=== PATIENT | male | born 1950 | race African-American/Black ===

== ENCOUNTER 2017-04-11 12:08 | Emergency (ER) | payer OTHER ==
[~2017-04-11] VITALS: Ht 175.3 cm; Wt 93.0 kg
[~2017-04-11 12:08] MED LIST: AMLO5 PO; LIPI10TA PO; PRIL10CA PO; PROT40TA PO; TAMS5CAP PO
[2017-04-11 12:13] VITALS: BP 127/72; PULSE 62; RESP 24; TEMP 98; O2SAT 98
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
[2017-04-11] MEDS ORDERED: CYCL1TAB29 PO (14:01)
[2017-04-11] MEDS ORDERED: NAPR500T PO (14:01)
== END 2017-04-11 14:16 | disposition home or self-care (01) ==
LOC: NEPK 12:08
DX: S16.1XXA Strain of muscle, fascia and tendon at neck level, initial encounter (principal); R42 Dizziness and giddiness; M19.90 Unspecified osteoarthritis, unspecified site; E78.00 Pure hypercholesterolemia, unspecified; K21.9 Gastro-esophageal reflux disease without esophagitis; J44.9 Chronic obstructive pulmonary disease, unspecified; V47.6XXA Car passenger injured in collision with fixed or stationary object in traffic accident, initial encounter; Z79.899 Other long term (current) drug therapy
CPT/HCPCS: 70450; 72125

== ENCOUNTER 2018-07-01 08:17 | Inpatient (IN) ==
[2018-07-01] MEDS ORDERED: Gelatin Size 100 Topical Foam TOPICAL ONE (08:18)
[2018-07-01] MEDS ORDERED: Gelatin 12 MM/7 MM Topical Foam OTHER ONE (08:18)
[2018-07-01] MEDS ORDERED: Sodium Chloride 0.9% 2 ML Flush PRN IV.FLUSH (08:44)
[2018-07-01] MEDS ORDERED: fentaNYL Citrate Inj 250 MCG/5 ML Ampul ONE (11:14)
[2018-07-01] MEDS ORDERED: Thrombin Topical Soln 5,000 UNIT Vial TOPICAL ONE (11:30)
--- NOTE | 2018-07-01 11:46 | P.RAD ---
Post Procedure Progress Note - Pre Procedure Diagnosis (1) Left kidney mass - Post Procedure Diagnosis (1) Left kidney mass - Procedure Information Procedure Date: 07/01/18 Supervising Radiologist: Rohith Soto MD Estimated blood loss (mL): 5 Anesthesia: Local, Conscious Sedation - Plan of Activity Patient to Unit: [facility] Patient Condition: Good Additional Comments: Pt. post left renal biopsy. 3 18Ga. core samples taken from the top, the middle and the bottom of the mass F/U ct shows a small amount of perinephric hemorrhage. Full dictated report to follow See PACS Report for procedural detail/treatment.
[2018-07-01] MEDS ORDERED: Acetaminophen 325 MG Tablet PO PRN (12:49)
[2018-07-01 13:18] LABS: Baso % (Auto) 0.6 % (0.0-2.0); Eos # (Auto) 0.2 th/mm3 (0.0-0.4); Eos % (Auto) 3.5 % (0.0-4.0); Hematocrit 36.7 % (39.0-51.0); Hemoglobin 11.8 gm/dL (13.0-17.0); Lymph # (Auto) 1.8 th/mm3 (1.0-4.8); Lymph % (Auto) 37.2 % (9.0-44.0); Mean Corpuscular Hemoglobin 29.3 pg (27.0-34.0); Mean Corpuscular Volume 91.4 fL (80.0-100.0); Mean Platelet Volume 9.2 fL (7.0-11.0); Mono # (Auto) 0.4 th/mm3 (0.0-0.9); Neut # (Auto) 2.5 th/mm3 (1.8-7.7); Neut % (Auto) 50.7 % (16.0-70.0); Platelet Count 148 th/mm3 (150-450); Red Blood Count 4.02 mil/mm3 (4.50-5.90); Red Cell Distribution Width 16.6 % (11.6-17.2)
--- NOTE | 2018-07-01 13:58 | CT ---
EXAM DATE: 07/01/2018 10:49 AM EDT AGE/SEX: 67 years / Male INDICATIONS: Left renal biopsy. CLINICAL DATA: This is the patient's initial encounter. Patient reports that signs and symptoms have been present for 1 day and indicates a pain score of 0/10. MEDICAL/SURGICAL HISTORY: Hypertension. Renal calculi. TB, left renal mass . hernia repair COMPARISON: [facility] – [place] ABDOMEN & PELVIS W CONTRAST, 09/29/2016. . SEDATION TIME (min): 30 BIOPSY SITE: Left renal MEDICATION(S): 2.5mg midazolam (Versed) IV 125mcg fentanyl (Sublimaze) IV DEVICE(S): 18 gauge Temno core biopsy needle Three core specimen(s) sent to the laboratory for pathologic evaluation. PROCEDURE: CT guided Left renal biopsy Prior to the procedure informed consent was obtained. Any appropriate prior imaging studies were rev iewed. Using automated exposure control and adjustment of the mA and/or kV according to patient size, radiat ion dose was kept as low as reasonably achievable to obtain optimal diagnostic quality images. DICOM format image data is available electronically for review and comparison. The site was prepped in a sterile fashion. Full sterile technique was used, including cap, mask, shane rile gloves and gown and a large sterile sheet. Hand hygiene and 2% chlorhexidine and/or betadine/al cohol prep was utilized per protocol for cutaneous antisepsis. The skin and subcutaneous tissues wer e infiltrated with local anesthetic solution. With CT guidance the lesion in the left kidney was selected. A 17-gauge cannula was advanced through the skin and down to the renal parenchyma above this. An 18-gauge core biopsy was performed. Immediat tri following the biopsy there was a moderate amount of hemorrhage which returned through the cannula . Approximately 1 cc of Gelfoam mixed with thrombin was advanced through the cannula. Another half cc was placed along the lateral margin of the renal cortex. Follow-up CT imaging was performed. There i s no evidence of significant hemorrhage from the kidney. 2 more cortical biopsies were performed dire cted more superiorly and inferiorly. Follow-up CT demonstrated a small amount of perinephric hemorrhage. The cannula was pulled back to th e renal cortex. Approximately 2 cc of Gelfoam was advanced through the cannula in place along the arya al cortex. The patient was allowed to remain on scanner for a proximally [address] was pe rformed. There is no significant change in size. The patient tolerated the procedure well and there were no complications. The patient was returned to the Radiology Outpatient Unit in stable condition. CONCLUSION: 1. Successful CT-guided biopsy of the lower pole the left kidney. 2. The patient was transferred back to the radiology outpatient unit in satisfactory condition. The patient will be monitored for approximately 6 hours. Electronically signed by: Rohith Soto MD 07/01/2018 1:57 PM EDT
--- NOTE | 2018-07-01 14:09 | P.RAD ---
Radiology Note Pt evaluated in [facility]. secondary to increasing back pain, nausea and hematuria. Hemoglobin is stable, Heart rate is stable at 84bpm. Collected urine has a significant amount of hemorrhage and the increasing back pain is worrisome for hemorrhage. Will proceed to angio to asses for pseudoaneurysm / active bleed
[2018-07-01] MEDS ORDERED: fentaNYL Citrate Inj 100 MCG/2 ML Ampul ONE (14:48)
[2018-07-01] MEDS ORDERED: ceFAZolin 2 GM Premix Inj 2 GM/100 ML BAG IV.SIG ONE (15:00)
--- NOTE | 2018-07-01 15:20 | P.CON ---
History of Present Illness Consult date: 07/01/18 Requesting Physician: Dennis Schumacher Reason for Consult: Medical management Primary Care Provider: UNKNOWN Chief Complaint: Status post Kidney Biopsy History of Present Illness: This is a pleasant 66 y/o Male who was brought in for scheduled renal biopsy performed today, He developed low back pain and Hematuria, for angiography to evaluate for Pseudocyst, he has OA, Hyperlipidemia, GERD Hiatal hernia, COPD/Emphysema, Tuberculosis in the past, He had an evaluation in ER on May 20/2018 found 1 cm cyst right kidney with associated renal stones, Seen by Urology specialist status post CT abdomen and Pelvis found 4.5 cm lesion on the left lower pole suspected renal cell carcinoma versus nephritis, followed by Urology specialist already due to BPH and Erectile Dysfunction, he has also Hypertension but non compliant with his medications, Review of Systems All other systems reviewed negative except as stated in HPI PMFSH - History History Provided By: Patient - Medical History Medical History: Medical History (Last Updated 05/20/18 @ 21:04 by Lesley Reich RN) High cholesterol History of emphysema Hx of gastroesophageal reflux (GERD) Meningitis spinal Tuberculosis - Surgical History Surgical History: Surgical History (Last Updated 05/20/18 @ 20:52 by Lesley Reich RN) History of hernia repair - Family History Family History: Family History (Last Updated 07/01/18 @ 16:08 by Tino Thurman MD) Mother Cancer Mother Diabetes Mother Hypertension - Tobacco History Second Hand Smoke Exposure: No Tobacco Use In Past 30 Days: No Smoking Status: Former smoker Tobacco Type: Cigarettes - Alcohol History How Often Do You Have a Drink Containing Alcohol: Monthly or less - Substance Use History Substance History: No History of Abuse - Travel History Recent Travel in the [place] Within the Last 8 Weeks: No Recent Travel Out of the Country Within the Last 8 Weeks: No Medications and Allergies Active Medications: Active Medications Acetaminophen (Tylenol) 650 mg PO Q4H PRN PRN Reason: for Pain Scale 1 to 5 Sodium Chloride (Ns Inj) 1,000 mls @ 30 mls/hr IV.CONT .Q24H WINTER Cefazolin/Sodium Chloride (Ancef 2 Gm Premix Inj) 2 gm in 100 mls @ 200 mls/hr IV.SIG NOW ONE Stop: 07/01/18 15:29 Last Admin: 07/01/18 14:58 Dose: 200 mls/hr Oxycodone/Acetaminophen (Percocet 5/325 Mg) 1 tab PO Q4H PRN PRN Reason: SEE LABEL COMMENTS Last Admin: 07/01/18 13:56 Dose: 1 tab Sodium Chloride (Ns Flush) 2 ml IV.FLUSH BID WINTER Sodium Chloride (Ns Flush) 2 ml IV.FLUSH PRN PRN PRN Reason: FLUSH AFTER USING IV ACCESS Allergies Allergy/AdvReac Type Severity Reaction Status Date / Time Iodinated Contrast- Oral and Allergy Burning Verified 05/20/18 20:55 IV Dye [Contrast] Physical Exam Vital signs: Vital Signs 07/01/18 08:42 07/01/18 12:00 07/01/18 12:15 Temperature 98.0 F 98 F Pulse Rate 59 L 70 77 Respiratory Rate 20 20 16 Blood Pressure 159/76 H 148/79 H 138/101 H Pulse Oximetry 92 L 92 L 93 L 07/01/18 12:45 07/01/18 13:15 07/01/18 13:45 Temperature Pulse Rate 66 60 80 Respiratory Rate 18 16 20 Blood Pressure 157/84 H 148/50 H 156/90 H Pulse Oximetry 95 95 Intake & Output 06/30/18 07/01/18 07/01/18 18:59 06:59 18:59 Output Total 250 / 250 Balance -250 / -250 Weight 95.254 kg Output: Urine 250 / 250 Other: Weight On Admission 95.254 kg Narrative: GENERAL: This is a well-nourished, well-developed patient, in no apparent distress. CARDIOVASCULAR: Regular rate and rhythm without murmurs, gallops, or rubs. RESPIRATORY: Clear to auscultation. Breath sounds equal bilaterally. No wheezes , rales, or rhonchi. GASTROINTESTINAL: Abdomen soft, non-tender, nondistended. Normal active bowel sounds, Garcia cath in place. MUSCULOSKELETAL: Extremities without clubbing, cyanosis, right inguinal area dressed and bleeding NEURO: Alert & Oriented x4 to person, place, time, situation. Moves all ext x4 Assessment and Plan - Plan 1. Left Kidney Mass suspected recommended for Left Kidney Percutaneous Biopsy FNA of the mass he has already known Left calyceal diverticulum. today is in status post Successful CT guided biopsy samples taken from top, The Middle and bottom of the mass, seen small amount of Perinephric Hemorrhage, then on evaluation in [facility] secondary to increasing back pain, Nausea and Hematuria Hemoglobin stable, recommended for Angiography thinking in pseudoaneurysm/ active bleeding then was performed Angiogram with embolization, probable Venous bleed. discussed with managed care specialist doctor Dennis Schumacher he wants the Medical team to follow the patient on Observation during the night and follow vital signs during the night and follow for Anemia, will continue H and H every six hours. follow Telemetry and Vital signs. 2. COPD/emphysema at this time asymptomatic but will continue scheduled Bronchodilator, Mucolytic and incentive spirometry. 3. OA by history 4. Hyperlipidemia by history will continue Home medicines once reconciled. 5. GERD on gastric protection 6. BPH/Erectile Dysfunction by history 7. Hypertension uncontrolled will give Hydralazine as needed for blood pressure. DVT prophylaxis contraindicated in the light of Hematuria. Code Status: Full code Discussed Condition With: Nurse, patient in post op difficult to obtain information from him As always a pleasure to talk about cases receive input and recommendations by Interventional managed care specialist Doctor Dennis Schumacher Appreciated. Discharge Planning: Once cleared by managed care specialist.
--- NOTE | 2018-07-01 15:46 | P.RAD ---
Post Procedure Progress Note - Pre Procedure Diagnosis (1) Status post biopsy of kidney (2) History of bleeding following renal biopsy (3) Left kidney mass - Post Procedure Diagnosis (1) History of bleeding following renal biopsy (2) Left kidney mass (3) Status post biopsy of kidney - Procedure Information Supervising Radiologist: Dennis Schumacher MD Estimated blood loss (mL): 3 Anesthesia: Local, Analgesia, Conscious Sedation - Plan of Activity Patient to Unit: [facility] Patient Condition: Good See PACS Report for procedural detail/treatment. Vascular - Arterial Procedure left Renal Procedure: Angiogram, Embolization (Lower pole branch of renal artery) - Additional Information Findings: Probable LP venous bleed. Feeding arteries embolized with microcoils and gelfoam
[2018-07-01] MEDS ORDERED: Labetalol HCl Inj 100 MG/20 ML Vial IV.PUSH ONE (16:05)
[2018-07-01 16:21] LABS: Baso # (Auto) 0.1 th/mm3 (0.0-0.2); Baso % (Auto) 0.3 % (0.0-2.0); Eos # (Auto) 0.1 th/mm3 (0.0-0.4); Eos % (Auto) 0.8 % (0.0-4.0); Hematocrit 32.8 % (39.0-51.0); Hemoglobin 10.8 gm/dL (13.0-17.0); Lymph # (Auto) 2.5 th/mm3 (1.0-4.8); Lymph % (Auto) 15.3 % (9.0-44.0); Mean Corpuscular Hemoglobin 29.9 pg (27.0-34.0); Mean Corpuscular Volume 90.5 fL (80.0-100.0); Mean Platelet Volume 9.5 fL (7.0-11.0); Mono # (Auto) 1.2 th/mm3 (0.0-0.9); Mono % (Auto) 7.3 % (0.0-8.0); Neut # (Auto) 12.3 th/mm3 (1.8-7.7); Neut % (Auto) 76.3 % (16.0-70.0); Platelet Count 160 th/mm3 (150-450); Red Blood Count 3.62 mil/mm3 (4.50-5.90); Red Cell Distribution Width 16.1 % (11.6-17.2); White Blood Count 16.1 th/mm3 (4.0-11.0)
[2018-07-01] MEDS ORDERED: hydrALAZINE HCl Inj 20 MG/ML Vial IV.PUSH PRN (16:28)
--- NOTE | 2018-07-01 16:36 | IR ---
EXAM DATE: 07/01/2018 12:00 AM EDT AGE/SEX: 67 years / Male INDICATIONS: Patient presents with left Renal bleeding in need of a left Renal Angiogram with possib le interventions. CLINICAL DATA: This is the patient's initial encounter. Patient reports that signs and symptoms have been present for 1 day and indicates a pain score of 10/10. MEDICAL/SURGICAL HISTORY: Gastroesophageal reflux disease. Hypercholesterolemia. Emphysema. Kidney stones, Calyceal diverticulum of left kidney, TB, Spinal meningitis. . Laser Lithotripsy. [place]PAR[place] [facility] [place], 07/01/2018. . FLUORO TIME (min): 9.5 IMAGE SERIES: 13 ACCESS SITE: Right femoral artery SEDATION TIME (min): 30 CONTRAST (cc): 70 Visipaque (iodixanol) MEDICATION(S): 100mcg fentanyl (Sublimaze) IV ; ; ; ; DEVICE(S): Left renal artery embolic coil(s) 0.18 3/2 tornado ; Left renal artery embolic coil 0.18 3/2 tornado ; Left renal artery Gelfoam Right common femoral artery Perclose 6 FR ; ; ; ; . . PROCEDURE : 1. Ultrasound-guided puncture of the access site. 2. Conscious sedation with continuous EKG and Oximetry monitoring. 3. Angiography of the third order branch vessel of the left renal artery, lower pole 4. Gelfoam and coil embolization, third order branch vessel of the lower pole left renal artery. EXAM DATE: 07/01/2018 12:00 AM EDT AGE/SEX: 67 years / Male INDICATIONS: Patient presents with left Renal bleeding in need of a left Renal Angiogram with possib le interventions. CLINICAL DATA: This is the patient's initial encounter. Patient reports that signs and symptoms have been present for 1 day and indicates a pain score of 10/10. MEDICAL/SURGICAL HISTORY: Gastroesophageal reflux disease. Hypercholesterolemia. Emphysema. Kidney stones, Calyceal diverticulum of left kidney, TB, Spinal meningitis. . Laser Lithotripsy. COMPARISON: [facility] [place], 07/01/2018. . FLUORO TIME (min): 9.5 IMAGE SERIES: 13 ACCESS SITE: Right femoral artery SEDATION TIME (min): 30 CONTRAST (cc): 70 Visipaque (iodixanol) MEDICATION(S): 100mcg fentanyl (Sublimaze) IV DEVICE(S): Left renal artery embolic coil(s) 0.18 3/2 tornado Left renal artery embolic coil 0.18 3/2 tornado Left renal artery Gelfoam Right common femoral artery Perclose 6 FR . . PROCEDURE : 1. Ultrasound-guided puncture of the access site. 2. Angiography of the access site prior to closure device. 3. Conscious sedation with continuous EKG and Oximetry monitoring. 4. Percutaneous closure of the access site. 5. Angiography of the third order branch vessel of the left lower pole renal artery. 6. Gelfoam and coil in mineralization third order branch vessel of the left lower pole renal artery The risks, benefits and alternatives to the procedure were explained and verbal and written consent w as obtained. The site was prepped in sterile fashion. Full sterile technique was used, including ca p, mask, sterile gloves and gown and a large sterile sheet. Hand hygiene and 2% chlorhexidine and/or betadine/alcohol prep was utilized per protocol for cutaneous antisepsis. Sterile gel and sterile p robe cover were utilized for ultrasound guidance. The skin and subcutaneous tissues were infiltrated with local anesthetic solution. With ultrasound and fluoroscopic guidance the selected artery was punctured and a vascular sheath was placed. Angiography of the common femoral artery was performed for evaluation prior to percutaneous closure device placement. A hockey-stick catheter was used to select the left renal artery. Position was confirmed with positiv e contrast. No obvious bleeding was identified on the initial injection. Therefore, the catheter was exchanged over a Richardson wire for a 5 English 55 cm Thuy which was placed into the left main renal arter y. Hockey-stick catheter and Glidewire were then manipulated into a lower pole branch of the left arya al artery. Contrast injection showed a delayed, faint blush in the lower pole, the expected location of biopsy. Through the glide hockey-stick, a high flow renegade microcatheter and agility wire were manipulated out into the third order branch of the lower pole vessel. Contrast injection confirmed a delayed blus h characteristic of a venous bleed. The arterial feeder was then coil embolized with a series of 3 mm Tornado coils and Gelfoam slurry to cessation of antegrade flow. Final contrasted run showed no ongo ing hemorrhage. Hemostasis was obtained with the prescribed medicated closure device. Conscious sedation was perform ed with the prescribed dosages and duration as above in the presence of an independent trained radiol ogy nurse to assist in the monitoring of the patient. EKG and oximetry remained stable throughout th e procedure. CONCLUSION: 1. Probable venous bleed in the lower pole of the left kidney. 2. Successful embolization of the arterial feeder to this region of the kidney with a series of 3 mm Tornado coils and Gelfoam slurry. Electronically signed by: Dennis Schumacher MD 07/07/2018 3:38 PM EDT
[2018-07-01] MEDS: guaiFENesin 600 MG ER Tablet PO SCH (21:09)
[2018-07-01] MEDS: Sodium Chloride 0.9% 2 ML Flush BID IV.FLUSH SCH (21:50)
[2018-07-01] MEDS: Sod Chloride 0.9% Inj 1,000 ML IV.CONT SCH (21:52)
[2018-07-01 23:16] LABS: Hematocrit 35.9 % (39.0-51.0); Hemoglobin 11.7 gm/dL (13.0-17.0)
[2018-07-01 23:22] LABS: Prothrombin Time 10.2 sec (9.8-11.6)
[2018-07-02] MEDS ORDERED: Mineral Oil Liq 30 ML UDC PO ONE (04:50)
[2018-07-02] MEDS ORDERED: Bisacodyl 10 MG Supp RECTAL PRN (04:51)
[2018-07-02 07:53] LABS: Hematocrit 34.7 % (39.0-51.0); Hemoglobin 11.1 gm/dL (13.0-17.0)
[2018-07-02] MEDS: guaiFENesin 600 MG ER Tablet PO SCH ×2 (08:07→21:22)
[2018-07-02] MEDS: Senna/Docusate Sodium 8.6/50 MG Tablet PO SCH ×2 (08:07→21:22)
[2018-07-02] MEDS: Sodium Chloride 0.9% 2 ML Flush BID IV.FLUSH SCH ×3 (08:08→21:22)
[2018-07-02] MEDS: Sod Chloride 0.9% Inj 1,000 ML IV.CONT SCH ×2 (08:08→08:09)
[2018-07-02 08:21] LABS: Calcium 8.4 mg/dL (8.5-10.1); Carbon Dioxide 21.9 meq/L (21.0-32.0); Potassium 4.5 meq/L (3.5-5.1)
[2018-07-02] MEDS ORDERED: hydrALAZINE 25 MG Tablet PO PRN (09:56)
--- NOTE | 2018-07-02 10:35 | P.RAD ---
Radiology Note 67 y/o Sp renal biopsy with subsequent hemorrhage and subselective renal embolization. Pt c/o back and belly pain this morning and has had several episodes of emesis. Abdomen is distended but soft on exam Urine has nearly cleared, hemoglobin has been stable post embolization most recent hemoglobin is 34.7 pre op hemiglobin 36.7 A/P 1. Urine is clearing and hemoglobin is stable I do not think there is continued bleeding from the biopsy 2. Emesis and distention will be addressed by the medical service. 3. Pt was advised back pain is secondary to retroperitoneal hematoma and will continue for 5-7 days.
--- NOTE | 2018-07-02 13:25 | P.PN ---
Subjective Interval history: Follow-up renal mass status post Sp renal biopsy with subsequent hemorrhage and subselective renal embolization. July 02, 2018-patient seen and examined, had multiple episode of emesis today and complained of abdominal distention. Also complained of left-sided flank pain. Currently afebrile. by the bedside. Case discussed with Dr. Soto, interventional radiologist Physical Exam Vital signs: Vital Signs 07/01/18 13:45 07/01/18 14:25 07/01/18 15:30 Temperature Pulse Rate 80 88 Respiratory Rate 20 20 16 Blood Pressure 156/90 H 167/107 H Pulse Oximetry 95 92 L 07/01/18 15:45 07/01/18 16:15 07/01/18 16:45 Temperature Pulse Rate 87 74 80 Respiratory Rate 20 20 16 Blood Pressure 176/106 H 170/104 H 145/107 H Pulse Oximetry 95 93 L 93 L 07/01/18 17:46 07/01/18 19:16 07/01/18 19:17 Temperature 97.8 F Pulse Rate 72 72 Respiratory Rate 19 18 Blood Pressure 145/70 H Pulse Oximetry 93 L 93 L 07/01/18 20:00 07/01/18 23:12 07/02/18 00:00 Temperature 98.4 F 98.4 F Pulse Rate 90 77 95 H Respiratory Rate 16 16 16 Blood Pressure 148/91 H 170/88 H Pulse Oximetry 97 96 07/02/18 03:24 07/02/18 04:00 07/02/18 08:00 Temperature 98.5 F 98.9 F Pulse Rate 78 100 H 89 Respiratory Rate 16 17 19 Blood Pressure 154/93 H 168/70 H Pulse Oximetry 95 96 07/02/18 08:23 07/02/18 11:21 07/02/18 12:00 Temperature 98.3 F Pulse Rate 94 H 96 H 98 H Respiratory Rate 16 16 19 Blood Pressure 159/86 H Pulse Oximetry 95 Intake & Output 07/01/18 07/02/18 07/02/18 18:59 06:59 18:59 Intake Total 100 / 100 150 / 150 1000 / 1000 Output Total 250 / 250 1200 / 1200 Balance -150 / -150 -1050 / -1050 1000 / 1000 Weight 95.254 kg 95.2 kg Intake: IV 100 / 100 1000 / 1000 NS Inj 1,000 ML @ 100 mls/hr IV 1000 / 1000 .CONT .Q10H [facility] Rx#:[id number] Ancef 2 GM Premix Inj 2 gm In 100 / 100 100 ml @ 200 mls/hr IV.SIG NOW ONE Rx#:[id number] Oral 150 / 150 Output: Urine 250 / 250 1200 / 1200 Other: Weight On Admission 95.254 kg Narrative: GENERAL: NAD SKIN: Warm and dry. HEAD: Normocephalic. EYES: No scleral icterus. No injection or drainage. NECK: Supple, trachea midline. No JVD or lymphadenopathy. CARDIOVASCULAR: Regular rate and rhythm without murmurs, gallops, or rubs. RESPIRATORY: Breath sounds equal bilaterally. No accessory muscle use. GASTROINTESTINAL: Abdomen soft, non-tender, +distended. Positive bowel sounds MUSCULOSKELETAL: No cyanosis, or edema. BACK: tender without obvious deformity. No CVA tenderness. Results - Labs CBC & Chem 7: 07/02/18 06:07 07/02/18 06:07 Laboratory Results - last 24 hr 07/01/18 07/01/18 07/01/18 16:06 22:49 22:49 WBC 16.1 H D RBC 3.62 L Hgb 10.8 L 11.7 L Hct 32.8 L 35.9 L MCV 90.5 MCH 29.9 MCHC 33.0 RDW 16.1 Plt Count 160 MPV 9.5 Neut % (Auto) 76.3 H Lymph % (Auto) 15.3 [place] % (Auto) 7.3 Eos % (Auto) 0.8 Baso % (Auto) 0.3 Neut # (Auto) 12.3 H Lymph # (Auto) 2.5 [place] # (Auto) 1.2 H Eos # (Auto) 0.1 Baso # (Auto) 0.1 WBC Differential . Differential Comment Auto diff final PT 10.2 INR 1.0 Sodium Potassium Chloride Carbon Dioxide Anion Gap BUN Creatinine Estimated GFR Random Glucose Calcium 07/02/18 07/02/18 06:07 06:07 WBC RBC Hgb 11.1 L Hct 34.7 L MCV MCH MCHC RDW Plt Count MPV Neut % (Auto) Lymph % (Auto) [place] % (Auto) Eos % (Auto) Baso % (Auto) Neut # (Auto) Lymph # (Auto) [place] # (Auto) Eos # (Auto) Baso # (Auto) WBC Differential Differential Comment PT INR Sodium 139 Potassium 4.5 Chloride 107 Carbon Dioxide 21.9 Anion Gap 10 BUN 17 Creatinine 1.69 H Estimated GFR 50 L Random Glucose 199 H Calcium 8.4 L - Imaging Impressions Renal Arteriogram 07/01/18 00:00 CONCLUSION: 1. Suspect a venous bleed from the lower pole vasculature in the left kidney. 2. Gelfoam and coil embolization of the arterial feeder to the left lower pole. Renal Biopsy CT 07/01/18 00:00 CONCLUSION: 1. Successful CT-guided biopsy of the lower pole the left kidney. 2. The patient was transferred back to the radiology outpatient unit in satisfactory condition. The patient will be monitored for approximately 6 hours. - Procedures Sp renal biopsy with subsequent hemorrhage and subselective renal embolization July 01, 2018 Assessment and Plan - Assessment (1) Left kidney mass Code(s): N28.89 - Other specified disorders of kidney and ureter Status: Acute (2) Status post biopsy of kidney Code(s): Z98.890 - Other specified postprocedural states Status: Acute - Plan 67 years old man with 1. Left Kidney Mass suspected recommended for Left Kidney Percutaneous Biopsy FNA of the mass S/p renal biopsy with subsequent hemorrhage and subselective renal embolization July 01, 2018 2. COPD/emphysema -continue scheduled Bronchodilator, Mucolytic and incentive spirometry. 3. OA by history 4. Hyperlipidemia -continue Home medicines once reconciled. 5. GERD on gastric protection 6. BPH/Erectile Dysfunction by history 7. Hypertension -continue with hydralazine as needed for blood pressure. Hep- Lock IV fluid 8. Abdominal distention and episodes of emesis Check flat and upright July 02, 2018 and treat accordingly Continue with antiemetic PRN 9. Constipation Continue with stool softener as needed DVT prophylaxis contraindicated in the light of Hematuria. Change to inpatient
--- NOTE | 2018-07-02 14:55 | XR ---
EXAM DATE: 07/02/2018 12:00 AM EDT AGE/SEX: 67 years / Male INDICATIONS: Distention, abdominal pain. CLINICAL DATA: This is the patient's initial encounter. Patient reports that signs and symptoms have been present for 2 days and indicates a pain score of 7/10. MEDICAL/SURGICAL HISTORY: . Carcinoma, kidney. . Hiatal hernia repair. COMPARISON: No prior exams available for comparison. FINDINGS: Supine and upright views of the abdomen were performed. The abdominal bowel gas pattern is normal. No air-fluid levels are seen. No abnormal masses, calcifications, or organomegaly is seen. The visualiz ed lower lungs are clear. No evidence of free intraperitoneal gas. The osseous structures are unremar kable. CONCLUSION: No acute findings. Electronically signed by: Chavez Brantley MD 07/02/2018 2:54 PM EDT
--- NOTE | 2018-07-02 20:57 | P.PNVS ---
Subjective Subjective/Hospital Course: Patient is status post renal biopsy and bleeding requiring embolization Referral received Full consult to follow Evelyn J Objective Vital Signs / I&O: Vital Signs 07/01/18 23:12 07/02/18 00:00 07/02/18 03:24 Temperature 98.4 F Pulse Rate 77 95 H 78 Respiratory Rate 16 16 16 Blood Pressure 170/88 H Pulse Oximetry 96 07/02/18 04:00 07/02/18 08:00 07/02/18 08:23 Temperature 98.5 F 98.9 F Pulse Rate 100 H 89 94 H Respiratory Rate 17 19 16 Blood Pressure 154/93 H 168/70 H Pulse Oximetry 95 96 07/02/18 11:21 07/02/18 12:00 07/02/18 15:00 Temperature 98.3 F Pulse Rate 96 H 98 H 95 H Respiratory Rate 16 19 16 Blood Pressure 159/86 H Pulse Oximetry 95 07/02/18 16:00 07/02/18 19:32 Temperature 98.5 F Pulse Rate 97 H 98 H Respiratory Rate 19 14 Blood Pressure 165/87 H Pulse Oximetry 95 96 Intake & Output 07/02/18 07/02/18 07/03/18 06:59 18:59 06:59 Intake Total 150 / 150 1000 / 1000 Output Total 1200 / 1200 950 / 950 Balance -1050 / -1050 50 / 50 Weight 95.2 kg Intake: IV 1000 / 1000 NS Inj 1,000 ML @ 100 mls/hr IV 1000 / 1000 .CONT .Q10H [facility] Rx#:[id number] Oral 150 / 150 Output: Urine 1200 / 1200 950 / 950 Laboratory Results - last 24 hr 07/01/18 07/01/18 07/02/18 22:49 22:49 06:07 Hgb 11.7 L 11.1 L Hct 35.9 L 34.7 L PT 10.2 INR 1.0 Sodium Potassium Chloride Carbon Dioxide Anion Gap BUN Creatinine Estimated GFR Random Glucose Calcium 07/02/18 06:07 Hgb Hct PT INR Sodium 139 Potassium 4.5 Chloride 107 Carbon Dioxide 21.9 Anion Gap 10 BUN 17 Creatinine 1.69 H Estimated GFR 50 L Random Glucose 199 H Calcium 8.4 L Impressions Renal Arteriogram 07/01/18 00:00 CONCLUSION: 1. Suspect a venous bleed from the lower pole vasculature in the left kidney. 2. Gelfoam and coil embolization of the arterial feeder to the left lower pole. Renal Biopsy CT 07/01/18 00:00 CONCLUSION: 1. Successful CT-guided biopsy of the lower pole the left kidney. 2. The patient was transferred back to the radiology outpatient unit in satisfactory condition. The patient will be monitored for approximately 6 hours. Abdomen X-Ray 07/02/18 00:00 CONCLUSION: No acute findings.
[2018-07-03] MEDS: Senna/Docusate Sodium 8.6/50 MG Tablet PO SCH ×2 (08:19→20:26)
[2018-07-03] MEDS: Sodium Chloride 0.9% 2 ML Flush BID IV.FLUSH SCH ×2 (08:19→20:26)
[2018-07-03] MEDS: guaiFENesin 600 MG ER Tablet PO SCH ×2 (08:19→20:26)
[2018-07-03] MEDS ORDERED: Sod Phosphate/Sod Biphosphate (Adult) Enema 133 ML Bottle RECTAL ONE ×2 (10:07→15:00)
--- NOTE | 2018-07-03 10:11 | P.PN ---
Subjective Interval history: Follow-up renal mass status post Sp renal biopsy with subsequent hemorrhage and subselective renal embolization. July 02, 2018-patient seen and examined, had multiple episode of emesis today and complained of abdominal distention. Also complained of left-sided flank pain. Currently afebrile. by the bedside. Case discussed with Dr. Soto, interventional radiologist July 03, 2018-patient seen and examined, last episode of emesis last night and reports some improvement since this a.m. T-max 100.1 at 4 AM however currently afebrile. Still no BM. Physical Exam Vital signs: Vital Signs 07/02/18 11:21 07/02/18 12:00 07/02/18 15:00 Temperature 98.3 F Pulse Rate 96 H 98 H 95 H Respiratory Rate 16 19 16 Blood Pressure 159/86 H Pulse Oximetry 95 07/02/18 16:00 07/02/18 19:32 07/02/18 20:00 Temperature 98.5 F 99.6 F Pulse Rate 97 H 98 H 116 H Respiratory Rate 19 14 20 Blood Pressure 165/87 H 153/79 H Pulse Oximetry 95 96 95 07/03/18 00:00 07/03/18 00:37 07/03/18 04:00 Temperature 98.9 F 100.1 F H Pulse Rate 109 H 99 H 102 H Respiratory Rate 20 16 20 Blood Pressure 153/76 H 153/85 H Pulse Oximetry 95 95 07/03/18 07:38 07/03/18 08:00 Temperature 98 F Pulse Rate 105 H 108 H Respiratory Rate 16 18 Blood Pressure Pulse Oximetry 93 L 93 L Intake & Output 07/02/18 07/03/18 07/03/18 18:59 06:59 18:59 Intake Total 1000 / 1000 580 / 580 Output Total 950 / 950 600 / 600 Balance 50 / 50 -20 / -20 Intake: IV 1000 / 1000 NS Inj 1,000 ML @ 100 mls/hr IV 1000 / 1000 .CONT .Q10H COUNTS INCLUDE 234 BEDS AT THE [facility] Rx#:[id number] Oral 580 / 580 Output: Urine 950 / 950 600 / 600 Narrative: GENERAL: NAD SKIN: Warm and dry. HEAD: Normocephalic. EYES: No scleral icterus. No injection or drainage. NECK: Supple, trachea midline. No JVD or lymphadenopathy. CARDIOVASCULAR: Regular rate and rhythm without murmurs, gallops, or rubs. RESPIRATORY: Breath sounds equal bilaterally. No accessory muscle use. GASTROINTESTINAL: Abdomen soft, non-tender, +distended. Positive bowel sounds MUSCULOSKELETAL: No cyanosis, or edema. BACK: tender without obvious deformity. No CVA tenderness. - Urinary Catheter Management Indwelling Urethral Catheter Cath placed during this visit: yes, but has since been removed by the nurse Reason for continuing: Gross Hematuria Insertion date: 07/01/18 Removal date: 07/03/18 Removal time: 09:46 Results - Labs CBC & Chem 7: 07/02/18 06:07 07/02/18 06:07 - Imaging Impressions Abdomen X-Ray 07/02/18 00:00 CONCLUSION: No acute findings. - Procedures Sp renal biopsy with subsequent hemorrhage and subselective renal embolization July 01, 2018 Assessment and Plan - Assessment (1) Left kidney mass Code(s): N28.89 - Other specified disorders of kidney and ureter Status: Acute (2) Status post biopsy of kidney Code(s): Z98.890 - Other specified postprocedural states Status: Acute - Plan 67 years old man with 1. Left Kidney Mass suspected recommended for Left Kidney Percutaneous Biopsy FNA of the mass S/p renal biopsy with subsequent hemorrhage and subselective renal embolization July 01, 2018 2. COPD/emphysema -continue scheduled Bronchodilator, Mucolytic and incentive spirometry. 3. OA by history 4. Hyperlipidemia -continue Home medicines once reconciled. 5. GERD on gastric protection 6. BPH/Erectile Dysfunction by history 7. Hypertension -continue with hydralazine as needed for blood pressure. 8. Abdominal distention and episodes of emesis-improving Abdominal flat and upright was unremarkable yesterday July 02, 2018 Continue with antiemetic PRN 9. Constipation Continue with stool softener as needed DVT prophylaxis contraindicated in the light of Hematuria.
--- NOTE | 2018-07-03 14:44 | P.PNADD ---
Addendum to Inpatient Note Reason for Addendum: Additional Documentation Additional information: [place] Prescription Drug Monitoring Database has been queried and verified prior to prescribing the controlled substance. Acute pain exception: This patient has normal, predicted, physiological, and time limited response to an adverse mechanical stimulus associated with surgery , trauma, or acute illness as described in my notes. There is a lack of alternative treatment options other than to include the prescribed narcotic treatment for this condition.
--- NOTE | 2018-07-03 19:34 | MB ---
cc: Suzette Navarro MD DATE: 07/03/2018 CONSULTING PHYSICIAN: Suzette Navarro MD, of vascular surgery. REFERRING PHYSICIAN: Dr. Soto of radiology. REASON FOR CONSULTATION: Abdominal distention and retroperitoneal bleeding. HISTORY OF PRESENT ILLNESS: This 67-year-old male underwent a renal biopsy, developed some bleeding postop, had embolization and now is stable. Unfortunately, the patient is now fairly distended with abdominal pain and a question arose about any surgical implications of the same. PAST MEDICAL HISTORY: Hypertension, hyperlipidemia, GI bleeding, peptic ulcer disease, arthritis. PAST SURGICAL HISTORY: EGD, colonoscopy, herniorrhaphy and laparoscopic cholecystectomy. MEDICATIONS: Can be found in the chart. SOCIAL HISTORY: The patient stopped smoking about 4 years ago. He used to smoke about 1/2 pack a day. He does not drink. PHYSICAL EXAMINATION: GENERAL: Reveals a pleasant 67-year-old gentleman, but a very poor historian. HEENT: Normocephalic. No trauma to the head. Pupils are equal and reactive. Extraocular muscles intact. NECK: Supple. Bilateral carotid pulses. No bruits. CHEST: Clear with bilateral breath sounds. HEART: Regular rhythm. ABDOMEN: Distended. Hypoactive bowel sounds. Quite tympanic on percussion. Sort of diffusely tender, but no rebound, no guarding is noted. No masses are noted. Pelvis is normal. EXTREMITIES: Grossly within normal limits with good proximal and distal pulses and no acute vascular deficits BACK: Normal. NEUROLOGIC: The patient is grossly intact. IMPRESSION: A patient with a small episode of bleeding post biopsy. Now, hemoglobin is stable. The patient's abdominal distention is a combination of narcotic administration associated with ileus, probably some retroperitoneal bleeding causing the same and lack of ambulation and activity. The patient can be given laxatives. He is tympanic, but certainly does not have an acute abdomen. We will see how the patient does. The patient does not have any symptoms to require surgical intervention. Thank you very much for this referral. We will continue to follow the patient with you. MD SERGEY Packer/winifred , 05:59 PM , 06:07 PM
[2018-07-04] MEDS: Sodium Chloride 0.9% 2 ML Flush BID IV.FLUSH SCH ×2 (08:04→22:22)
[2018-07-04] MEDS: Senna/Docusate Sodium 8.6/50 MG Tablet PO SCH ×2 (08:04→22:23)
[2018-07-04] MEDS: guaiFENesin 600 MG ER Tablet PO SCH ×2 (08:04→22:22)
--- NOTE | 2018-07-04 10:50 | P.PN ---
Subjective Interval history: Follow-up renal mass status post Sp renal biopsy with subsequent hemorrhage and subselective renal embolization. July 02, 2018-patient seen and examined, had multiple episode of emesis today and complained of abdominal distention. Also complained of left-sided flank pain. Currently afebrile. by the bedside. Case discussed with Dr. Soto, interventional radiologist July 03, 2018-patient seen and examined, last episode of emesis last night and reports some improvement since this a.m. T-max 100.1 at 4 AM however currently afebrile. Still no BM. July 04, 2018-patient seen and examined, still with abdominal distention and pain patient has a tiny BM yesterday described as pellet. Positive for shortness of breath and wheezing on exam Physical Exam Vital signs: Vital Signs 07/03/18 11:38 07/03/18 12:00 07/03/18 15:27 Temperature 98 F Pulse Rate 102 H 109 H 105 H Respiratory Rate 16 12 16 Blood Pressure 143/60 H Pulse Oximetry 97 07/03/18 16:00 07/03/18 19:47 07/03/18 20:00 Temperature 99.2 F 97.8 F Pulse Rate 106 H 114 H 108 H Respiratory Rate 18 16 16 Blood Pressure 123/78 128/73 Pulse Oximetry 97 94 L 98 07/04/18 00:00 07/04/18 00:14 07/04/18 04:00 Temperature 98.8 F 98.3 F Pulse Rate 112 H 103 H 106 H Respiratory Rate 20 16 22 Blood Pressure 146/84 H 127/63 Pulse Oximetry 92 L 94 L 07/04/18 07:00 07/04/18 07:42 07/04/18 08:18 Temperature 98.1 F Pulse Rate 103 H 101 H Respiratory Rate 12 20 16 Blood Pressure 150/83 H Pulse Oximetry 93 L 93 L Intake & Output 07/03/18 07/04/18 07/04/18 18:59 06:59 18:59 Intake Total 960 / 960 Output Total 450 / 450 625 / 625 200 / 200 Balance -450 / -450 335 / 335 -200 / -200 Intake: Oral 960 / 960 Output: Urine 450 / 450 625 / 625 200 / 200 Other: Date of Last Bowel Movement 07/03/18 Narrative: GENERAL: NAD SKIN: Warm and dry. HEAD: Normocephalic. EYES: No scleral icterus. No injection or drainage. NECK: Supple, trachea midline. No JVD or lymphadenopathy. CARDIOVASCULAR: Regular rate and rhythm without murmurs, gallops, or rubs. RESPIRATORY: Breath sounds equal bilaterally. No accessory muscle use.+ Bilateral expiratory wheezing GASTROINTESTINAL: Abdomen soft, non-tender, +distended. Positive bowel sounds MUSCULOSKELETAL: No cyanosis, or edema. BACK: tender without obvious deformity. No CVA tenderness. - Urinary Catheter Management Indwelling Urethral Catheter Cath placed during this visit: yes, but has since been removed by the nurse Reason for continuing: Decision to DC catheter Insertion date: 07/01/18 Removal date: 07/03/18 Removal time: 11:00 Results - Labs CBC & Chem 7: 07/02/18 06:07 07/02/18 06:07 - Procedures Sp renal biopsy with subsequent hemorrhage and subselective renal embolization July 01, 2018 Assessment and Plan - Assessment (1) Left kidney mass Code(s): N28.89 - Other specified disorders of kidney and ureter Status: Acute (2) Status post biopsy of kidney Code(s): Z98.890 - Other specified postprocedural states Status: Acute - Plan 67 years old man with 1. Left Kidney Mass suspected recommended for Left Kidney Percutaneous Biopsy FNA of the mass S/p renal biopsy with subsequent hemorrhage and subselective renal embolization July 01, 2018 2. COPD/emphysema now with exacerbation-we will start patient on prednisone p.o. , Symbicort and Spiriva, and continue scheduled Bronchodilator, Mucolytic and incentive . 3. OA by history 4. Hyperlipidemia -continue Home medicines once reconciled. 5. GERD on gastric protection 6. BPH/Erectile Dysfunction by history 7. Hypertension -continue with hydralazine as needed for blood pressure. 8. Abdominal distention and episodes of emesis-improving Abdominal flat and upright was unremarkable yesterday July 02, 2018 Continue with antiemetic PRN 9. Constipation Continue with stool softener as needed Will try Soap Suds enema x 2 DVT prophylaxis contraindicated in the light of Hematuria.
[2018-07-04] MEDS: Tiotropium Bromide 18 MCG/ACT Inhaler INH SCH (11:40)
[2018-07-04] MEDS: Budesonide-Formoterol 160/4.5 MCG 6 GM Inhaler INH SCH ×2 (11:40→22:24)
[2018-07-04] MEDS: predniSONE 10 MG Tablet PO SCH (11:40)
[2018-07-04] MEDS ORDERED: Mineral Oil Enema 118 ML Bottle RECTAL ONE (12:00)
[2018-07-04] MEDS ORDERED: Magnesium Citrate Liq 300 ML Bottle PO ONE (14:10)
[2018-07-04] MEDS ORDERED: Pantoprazole Inj 40 MG Vial IV.PUSH SCH (16:00)
[2018-07-04] MEDS: Azithromycin 250 MG Tablet PO SCH (16:07)
[2018-07-04 16:09] LABS: Hematocrit 27.7 % (39.0-51.0); Hemoglobin 9.3 gm/dL (13.0-17.0)
--- NOTE | 2018-07-04 16:47 | P.CONGI ---
History of Present Illness Consult date: 07/04/18 Consult reason: Upper GI bleed Chief complaint: D30.00 History of Present Illness: This is a 67-year-old male who entered the hospital on 07/01/2018 for renal biopsy according to the record patient was seen per urology and 4.5 cm lesion in the left lower renal pole was seen suspected of renal cell carcinoma versus nephritis. Patient is status post renal biopsy and embolization for postop bleeding Biopsies are pending patient has struggled with symptoms of nausea and vomiting for the past 3 days. Initial emesis noted over the past 48 hours was coffee-ground emesis but this p.m. has had one episode of maroon colored hematemesis. Patient is also struggling with symptoms of abdominal pain and distention over the past 48 hours with tympany. Patient notes recent history of constipation and no BM in the past 3 days. Patient is not passing gas and does have generalized abdominal pain. He also notes 3 days of no appetite and was unable to drink mag citrate today for bowel regimen. Patient does note a history of GERD and has been on IV Protonix. When patient is lying flat in the bed he does have some obvious shortness of breath on room air. Denies any recent alcohol intake and no social drugs. surgical evaluation was done today to evaluate abdomen; no surgical intervention was needed. Positive family history of colon cancer with patient's uncle in his 70s. Initial hemoglobin on admission was 11.8 now 11.1 and PT/INR on 07/01/2018 was 1. Patient has been evaluated for possible ileus but abdominal x-rays have been benign. Gastroenterology was consulted to assist with patient's current symptoms and plan of care. [facility], Dr. Arrington according to patient and states no colonoscopy for 10 years or greater and no recent endoscopy. <Brooklyn Flowers - Last Filed: 07/04/18 16:47> Review of Systems All other systems reviewed negative except as stated in HPI <Brooklyn Flowers - Last Filed: 07/04/18 16:47> PMFSH - History History Provided By: Patient - Medical History Medical History: Medical History (Last Updated 05/20/18 @ 21:04 by Lesley Reich RN) High cholesterol History of emphysema Hx of gastroesophageal reflux (GERD) Meningitis spinal Tuberculosis - Surgical History Surgical History: Surgical History (Last Updated 05/20/18 @ 20:52 by Lesley Reich RN) History of hernia repair - Family History Family History: Family History (Last Updated 07/01/18 @ 16:08 by Tino Thurman MD) Mother Cancer Mother Diabetes Mother Hypertension - Tobacco History Second Hand Smoke Exposure: No Tobacco Use In Past 30 Days: No Smoking Status: Former smoker Tobacco Type: Cigarettes - Alcohol History How Often Do You Have a Drink Containing Alcohol: Monthly or less - Substance Use History Substance History: No History of Abuse - Travel History Recent Travel in the [place] Within the Last 8 Weeks: No Recent Travel Out of the Country Within the Last 8 Weeks: No <KristieBrooklyn Percy - Last Filed: 07/04/18 16:47> - Medical History Medical History: Medical History (Last Updated 05/20/18 @ 21:04 by Lesley Reich RN) High cholesterol History of emphysema Hx of gastroesophageal reflux (GERD) Meningitis spinal Tuberculosis - Surgical History Surgical History: Surgical History (Last Updated 05/20/18 @ 20:52 by Lesley Reich RN) History of hernia repair - Family History Family History: Family History (Last Updated 07/01/18 @ 16:08 by Tino Thurman MD) Mother Cancer Mother Diabetes Mother Hypertension <Liban Brice - Last Filed: 07/05/18 08:56> Medications and Allergies Active Medications: Active Medications Acetaminophen (Tylenol) 650 mg PO Q4H PRN PRN Reason: for Pain Scale 1 to 5 Last Admin: 07/04/18 14:23 Dose: 650 mg Al Hydroxide/Mg Hydroxide (Milk Of Magnlyudmila Liq) 30 ml PO Q12H PRN PRN Reason: Mild Constipation Last Admin: 07/03/18 08:19 Dose: 30 ml Albuterol (Duoneb Neb (Bushra)) 1 ampul NEB Q4HR NEB BUSHRA Last Admin: 07/04/18 12:11 Dose: 1 ampul Albuterol (Duoneb Neb (Prn)) 1 ampul NEB Q2HR NEB PRN PRN Reason: SHORTNESS OF BREATH Azithromycin (Zithromax) 250 mg PO Q24H BUSHRA Last Admin: 07/04/18 16:07 Dose: 250 mg Bisacodyl (Dulcolax Supp) 10 mg RECTAL DAILY PRN PRN Reason: SEVERE CONSITIPATION Last Admin: 07/03/18 04:50 Dose: 10 mg Budesonide/Formoterol Fumarate (Symbicort 160/4.5 Mcg Inh) 2 puff INH BID [facility] Last Admin: 07/04/18 11:40 Dose: 2 puff Guaifenesin (Mucinex Er) 600 mg PO BID [facility] Last Admin: 07/04/18 08:04 Dose: 600 mg Hydralazine HCl (Apresoline) 25 mg PO TID PRN PRN Reason: SBP>160, DBP>90 Last Admin: 07/02/18 10:14 Dose: 25 mg Pantoprazole Sodium 80 mg/ (Sodium Chloride) 100 mls @ 10 mls/hr IV.CONT Q10H BUSHRA Sodium Chloride (Ns Inj) 250 mls @ 15 mls/hr IV.SIG ONCE [facility] Stop: 07/05/18 09:39 Lactulose (Lactulose Liq) 30 ml PO DAILY PRN PRN Reason: SEVERE CONSITIPATION Last Admin: 07/02/18 10:14 Dose: 30 ml Ondansetron HCl (Zofran Inj) 4 mg IV.PUSH Q6H PRN PRN Reason: NAUSEA Last Admin: 07/04/18 14:22 Dose: 4 mg Oxycodone/Acetaminophen (Percocet 5/325 Mg) 1 tab PO Q4H PRN PRN Reason: SEE LABEL COMMENTS Last Admin: 07/04/18 04:12 Dose: 1 tab Prednisone (Deltasone) 10 mg PO DAILY [facility] Last Admin: 07/04/18 11:40 Dose: 10 mg Senna/Docusate Sodium (Misty-Colace) 1 tab PO BID [facility] Last Admin: 07/04/18 08:04 Dose: 1 tab Sennosides (Senokot) 17.2 mg PO Q12H PRN PRN Reason: Moderate Constipation Sodium Chloride (Ns Flush) 2 ml IV.FLUSH BID [facility] Last Admin: 07/04/18 08:04 Dose: 2 ml Sodium Chloride (Ns Flush) 2 ml IV.FLUSH PRN PRN PRN Reason: FLUSH AFTER USING IV ACCESS Tiotropium Weston (Spiriva 18 Mcg Inh) 18 mcg INH DAILY [facility] Last Admin: 07/04/18 11:40 Dose: 18 mcg <Brooklyn Flowers - Last Filed: 07/04/18 16:47> Active Medications: Active Medications Acetaminophen (Tylenol) 650 mg PO Q4H PRN PRN Reason: for Pain Scale 1 to 5 Last Admin: 07/04/18 14:23 Dose: 650 mg Al Hydroxide/Mg Hydroxide (Milk Of Magnesia Liq) 30 ml PO Q12H PRN PRN Reason: Mild Constipation Last Admin: 07/03/18 08:19 Dose: 30 ml Albuterol (Duoneb Neb (Bushra)) 1 ampul NEB Q4HR NEB BUSHRA Last Admin: 07/05/18 07:43 Dose: 1 ampul Albuterol (Duoneb Neb (Prn)) 1 ampul NEB Q2HR NEB PRN PRN Reason: SHORTNESS OF BREATH Azithromycin (Zithromax) 250 mg PO Q24H BUSHRA Last Admin: 07/04/18 16:07 Dose: 250 mg Bisacodyl (Dulcolax Supp) 10 mg RECTAL DAILY PRN PRN Reason: SEVERE CONSITIPATION Last Admin: 07/03/18 04:50 Dose: 10 mg Budesonide/Formoterol Fumarate (Symbicort 160/4.5 Mcg Inh) 2 puff INH BID [facility] Last Admin: 07/05/18 08:01 Dose: 2 puff Guaifenesin (Mucinex Er) 600 mg PO BID [facility] Last Admin: 07/05/18 08:01 Dose: 600 mg Hydralazine HCl (Apresoline) 25 mg PO TID PRN PRN Reason: SBP>160, DBP>90 Last Admin: 07/02/18 10:14 Dose: 25 mg Pantoprazole Sodium 80 mg/ (Sodium Chloride) 100 mls @ 10 mls/hr IV.CONT Q10H BUSHRA Last Admin: 07/05/18 03:56 Dose: 10 mls/hr Sodium Chloride (Ns Inj) 250 mls @ 15 mls/hr IV.SIG ONCE [facility] Stop: 07/05/18 09:39 Last Admin: 07/04/18 17:20 Dose: Not Given Lactulose (Lactulose Liq) 30 ml PO DAILY PRN PRN Reason: SEVERE CONSITIPATION Last Admin: 07/02/18 10:14 Dose: 30 ml Ondansetron HCl (Zofran Inj) 4 mg IV.PUSH Q6H PRN PRN Reason: NAUSEA Last Admin: 07/04/18 14:22 Dose: 4 mg Oxycodone/Acetaminophen (Percocet 5/325 Mg) 1 tab PO Q4H PRN PRN Reason: SEE LABEL COMMENTS Last Admin: 07/05/18 08:00 Dose: 1 tab Prednisone (Deltasone) 10 mg PO DAILY [facility] Last Admin: 07/05/18 08:01 Dose: 10 mg Senna/Docusate Sodium (Misty-Colace) 1 tab PO BID [facility] Last Admin: 07/05/18 08:01 Dose: Not Given Sennosides (Senokot) 17.2 mg PO Q12H PRN PRN Reason: Moderate Constipation Sodium Chloride (Ns Flush) 2 ml IV.FLUSH BID [facility] Last Admin: 07/05/18 08:01 Dose: 2 ml Sodium Chloride (Ns Flush) 2 ml IV.FLUSH PRN PRN PRN Reason: FLUSH AFTER USING IV ACCESS Tiotropium Weston (Spiriva 18 Mcg Inh) 18 mcg INH DAILY [facility] Last Admin: 07/05/18 08:01 Dose: 18 mcg <Liban Brice - Last Filed: 07/05/18 08:56> Allergies Allergy/AdvReac Type Severity Reaction Status Date / Time Iodinated Contrast- Oral and Allergy Burning Verified 05/20/18 20:55 IV Dye [Contrast] Exam Vital signs: Vital Signs 07/03/18 19:47 07/03/18 20:00 07/04/18 00:00 Temperature 97.8 F 98.8 F Pulse Rate 114 H 108 H 112 H Respiratory Rate 16 16 20 Blood Pressure 128/73 146/84 H Pulse Oximetry 94 L 98 92 L 07/04/18 00:14 07/04/18 04:00 07/04/18 07:00 Temperature 98.3 F Pulse Rate 103 H 106 H Respiratory Rate 16 22 12 Blood Pressure 127/63 Pulse Oximetry 94 L 07/04/18 07:42 07/04/18 08:18 07/04/18 11:00 Temperature 98.1 F Pulse Rate 103 H 101 H 113 H Respiratory Rate 20 16 22 Blood Pressure 150/83 H Pulse Oximetry 93 L 93 L 07/04/18 11:59 07/04/18 16:00 Temperature 99.2 F 99.0 F Pulse Rate 110 H 106 H Respiratory Rate 20 20 Blood Pressure 132/74 142/80 H Pulse Oximetry 94 L 92 L Intake & Output 07/03/18 07/04/18 07/04/18 18:59 06:59 18:59 Intake Total 960 / 960 Output Total 450 / 450 625 / 625 350 / 350 Balance -450 / -450 335 / 335 -350 / -350 Intake: Oral 960 / 960 Output: Urine 450 / 450 625 / 625 350 / 350 Other: Date of Last Bowel Movement 07/03/18 - Constitutional severe distress, obese, disheveled, cooperative - Routine HEENT Exam Head: Present: normocephalic ENT: Present: mucous membranes moist (Hematemesis noted maroon colored bleeding greater than 100 cc x1 this p.m., coffee-ground emesis over the past 2 days. According to ) - Routine Neck Exam Present: supple - Routine Respiratory Exam Present: decreased breath sounds, diminished air movement (When lying flat, currently on room air) - Routine Cardiovascular Exam Present: S1, S2 - Routine Abdominal Exam Present: distended (Mild to moderate with tympany, no active bowel sounds for now, no flatus) - Routine Skin Exam Present: pallor - Routine Neurological Exam Present: alert (Answering simple question) <Brooklyn Flowers - Last Filed: 07/04/18 16:47> Vital signs: Vital Signs 07/04/18 11:00 07/04/18 11:59 07/04/18 16:00 Temperature 99.2 F 99.0 F Pulse Rate 113 H 110 H 106 H Respiratory Rate 22 20 20 Blood Pressure 132/74 142/80 H Pulse Oximetry 94 L 92 L 07/04/18 17:20 07/04/18 19:50 07/04/18 20:00 Temperature 99.1 F 100.8 F H Pulse Rate 103 H 97 H Respiratory Rate 24 29 H Blood Pressure 160/80 H 134/69 Pulse Oximetry 97 96 92 L 07/04/18 23:41 07/04/18 23:53 07/05/18 00:00 Temperature 100.3 F H Pulse Rate 94 H 96 H Respiratory Rate 14 19 13 Blood Pressure 114/63 Pulse Oximetry 97 07/05/18 04:00 07/05/18 04:34 07/05/18 07:00 Temperature 98.6 F Pulse Rate 91 H 92 H 92 H Respiratory Rate 20 14 18 Blood Pressure 104/67 Pulse Oximetry 97 07/05/18 07:44 Temperature Pulse Rate Respiratory Rate Blood Pressure Pulse Oximetry 98 Intake & Output 07/04/18 07/05/18 07/05/18 18:59 06:59 18:59 Intake Total 0 / 0 100 / 100 Output Total 450 / 450 1400 / 1400 Balance -450 / -450 -1300 / -1300 Weight 97.6 kg Intake: IV 100 / 100 Protonix Inj 80 MG In NS Inj 100 / 100 100 ML @ 10 mls/hr IV.CONT Q10H BUSHRA Rx#:[id number] Oral 0 / 0 0 / 0 Output: Urine 450 / 450 1400 / 1400 Other: Date of Last Bowel Movement 07/03/18 # Bowel Movements 0 0 <Liban Brice - Last Filed: 07/05/18 08:56> Results - Labs CBC & Chem 7: 07/04/18 16:00 07/02/18 06:07 Labs: Laboratory Results - last 24 hr 07/04/18 16:00 Hgb 9.3 L Hct 27.7 L <Brooklyn Flowers - Last Filed: 07/04/18 16:47> - Labs CBC & Chem 7: 07/05/18 03:58 07/05/18 03:58 Labs: Laboratory Results - last 24 hr 07/04/18 07/04/18 07/04/18 16:00 16:00 17:40 WBC 11.8 H RBC 3.14 L Hgb 9.3 L 9.2 L Hct 27.7 L 28.0 L MCV 89.1 MCH 29.5 MCHC 33.1 RDW 16.5 Plt Count 147 L MPV 9.8 Sodium Potassium Chloride Carbon Dioxide Anion Gap BUN Creatinine Estimated GFR Random Glucose Calcium Nasal Screen MRSA (PCR) Not detected Blood Type Blood Type Recheck Antibody Screen 07/04/18 07/04/18 07/05/18 18:25 21:11 03:58 WBC RBC Hgb 8.9 L Hct 27.5 L MCV MCH MCHC RDW Plt Count MPV Sodium 136 Potassium 4.4 Chloride 99 Carbon Dioxide 30.9 Anion Gap 6 BUN 22 H Creatinine 1.44 H Estimated GFR 60 L Random Glucose 124 H Calcium 8.0 L Nasal Screen MRSA (PCR) Blood Type O Positive Blood Type Recheck Not needed Antibody Screen Negative 07/05/18 03:58 WBC 10.2 RBC 2.88 L Hgb 8.6 L Hct 25.9 L MCV 89.8 MCH 29.8 MCHC 33.2 RDW 16.3 Plt Count 131 L MPV 9.8 Sodium Potassium Chloride Carbon Dioxide Anion Gap BUN Creatinine Estimated GFR Random Glucose Calcium Nasal Screen MRSA (PCR) Blood Type Blood Type Recheck Antibody Screen - Imaging Impressions Abdomen/Pelvis CT 07/04/18 00:00 CONCLUSION: 1. Interval development of a large left retroperitoneal hematoma involving perirenal and posterior pararenal spaces, measuring 15 cm in superior/inferior extent. Is also some fluid tracking underneath the left hemidiaphragm and induration extending into the left inguinal canal. 2. Moderate size left pleural effusion and subsegmental consolidation in the left lower lobe. <Liban Brice - Last Filed: 07/05/18 08:56> Assessment and Plan - Plan This is a 67-year-old male who entered the hospital on 07/01/2018 for renal biopsy according to the record patient was seen per urology and 4.5 cm lesion in the left lower renal pole was seen suspected of renal cell carcinoma versus nephritis. Patient is status post renal biopsy and embolization for postop bleeding biopsies are pending patient has struggled with symptoms of nausea and vomiting for the past 3 days. Initial emesis noted over the past 48 hours was coffee-ground emesis but this p.m. has had one episode of maroon colored hematemesis. Patient is also struggling with symptoms of abdominal pain and distention over the past 48 hours with tympany. Patient notes recent history of constipation and no BM in the past 3 days. Patient is not passing gas and does have generalized abdominal pain. He also notes 3 days of no appetite and was unable to drink mag citrate today for bowel regimen. Patient does note a history of GERD and has been on IV Protonix. When patient is lying flat in the bed he does have some obvious shortness of breath on room air. Denies any recent alcohol intake and no social drugs. surgical evaluation was done today to evaluate abdomen; no surgical intervention was needed. Positive family history of colon cancer with patient's uncle in his 70s. Initial hemoglobin on admission was 11.8 now 11.1 and PT/INR on 07/01/2018 was 1. Patient has been evaluated for possible ileus but abdominal x-rays have been benign. Gastroenterology was consulted to assist with patient's current symptoms and plan of care. Patient is [facility] to [facility], Dr. Arrington according to patient and states no colonoscopy for 10 years or greater and no recent endoscopy. Patient was evaluated approximately 4:00 on 07/04/2018, CBC was drawn to reevaluate patient's hemoglobin since he has obvious hematemesis and upper GI bleed which could be related to ulcers versus inflammation, ileus. Patient also has shortness of breath worsened when lying flat, with generalized weakness. It is felt the patient would benefit from close monitoring and is being transitioned to the intensive care setting. Hemoglobin has been rechecked previous hemoglobin noted 11.1 now 9.3. Acute upper GI bleed, patient discussed with hospitalist for orders for transition to intensive care setting Plan Renal biopsies are pending Diet n.p.o. for now Place NG tube and connected to low intermittent suction CT scan of abdomen and pelvis without contrast, current creatinine 1.69 and patient has allergies to contrast Monitor hemoglobin, type and hold 2 units already ordered Consent for EGD, plan for a.m. or if patient becomes unstable this p.m. will need to call GI doctor staffing operations manager Changed to Protonix IV to IV drip Anti-emetics and pain meds per attending Further recommendations to follow Self and Dr. Brice, note was written on his behalf <Brooklyn Flowers - Last Filed: 07/04/18 16:47> - Plan Seen and examined with [employer], N/V followed by hematemesis. Continued abdominal distension. CT scan STAT, NG to LIS, type and screen for [address]BC[address] [facility] [place]. The exam, history, and the medical decision-making described in the above note were completed with the assistance of the mid-level provider. I reviewed and agree with the findings presented. I attest that I had a [id number] encounter with the patient on the same day, and personally performed and documented my assessment and findings in the medical record.EGD planned. Discussed with DR Neri and family <Liban Brice - Last Filed: 07/05/18 08:56>
[2018-07-04] MEDS ORDERED: Sodium Chlor 0.9% Inj 250 ML IV.SIG SCH (17:00)
[2018-07-04 17:24] LABS: Hemoglobin 9.2 gm/dL (13.0-17.0); Mean Corpuscular HGB Conc 33.1 % (32.0-36.0); Mean Corpuscular Hemoglobin 29.5 pg (27.0-34.0); Mean Corpuscular Volume 89.1 fL (80.0-100.0); Mean Platelet Volume 9.8 fL (7.0-11.0); Platelet Count 147 th/mm3 (150-450); Red Blood Count 3.14 mil/mm3 (4.50-5.90); Red Cell Distribution Width 16.5 % (11.6-17.2); White Blood Count 11.8 th/mm3 (4.0-11.0)
[2018-07-04] MEDS: Pantoprazole Inj 80 MG in Sodium Chlor 0.9% Inj 100 ML IV.CONT SCH (18:06)
--- NOTE | 2018-07-04 20:47 | CT ---
EXAM DATE: 07/04/2018 8:22 PM EDT AGE/SEX: 67 years / Male INDICATIONS: Abdominal pain and distention; rule out ileus. CLINICAL DATA: This is the patient's subsequent encounter. Patient reports that signs and symptoms h ave been present for 3 days and indicates a pain score of 6/10. MEDICAL/SURGICAL HISTORY: Chronic obstructive pulmonary disease. Gastroesophageal reflux disea se. Left kidney mass, TB, spinal memingitis . Hernia repair RADIATION DOSE: 19.03 CTDI (mGy) [place] [facility] [place], 09[place]29/2016. [facility] [place] 07/01/20 18. . TECHNIQUE: Multiple contiguous axial images were obtained through the abdomen. Images were obtained using multiple row detector helical technique. Using automated exposure control and adjustment of the mA and/or kV according to patient size, radiation dose was kept as low as reasonably achievable to o btain optimal diagnostic quality images. DICOM format image data is available electronically for rev iew and comparison. FINDINGS: Interval development of heterogeneous soft tissue density in the left pararenal and posterior perire nal space measuring 9.0 x 6.6 cm in axial dimension and 15 cm in superior/inferior dimension. Heterog eneous density suggests blood products. There is also a focal hyperdensity in the inferior pole of th e left kidney at the biopsy site. There is some induration of the fat extending into the left inguina l canal. Some fluid extends into the left upper quadrant between the diaphragm and spleen. There is a moderate size left pleural effusion measuring 5.9 cm. Subsegmental consolidation with air bronchograms in the left lower lung. Stable appearance to a large hiatus hernia with most of the stom ach intrathoracic. The liver, spleen, pancreas, right kidney, and adrenal glands are intact. The abdo suzi aorta is normal in dimension. Urinary bladder margins are smooth. CONCLUSION: 1. Interval development of a large left retroperitoneal hematoma involving perirenal and posterior p ararenal spaces, measuring 15 cm in superior/inferior extent. Is also some fluid tracking underneath the left hemidiaphragm and induration extending into the left inguinal canal. 2. Moderate size left pleural effusion and subsegmental consolidation in the left lower lobe. Electronically signed by: Irineo Sidhu MD 07/04/2018 8:46 PM EDT
[2018-07-04 21:18] LABS: Hematocrit 27.5 % (39.0-51.0); Hemoglobin 8.9 gm/dL (13.0-17.0)
[2018-07-05] MEDS: Pantoprazole Inj 80 MG in Sodium Chlor 0.9% Inj 100 ML IV.CONT SCH ×3 (03:56→14:04)
[2018-07-05 04:45] LABS: Hematocrit 25.9 % (39.0-51.0); Hemoglobin 8.6 gm/dL (13.0-17.0); Mean Corpuscular HGB Conc 33.2 % (32.0-36.0); Mean Corpuscular Hemoglobin 29.8 pg (27.0-34.0); Mean Corpuscular Volume 89.8 fL (80.0-100.0); Mean Platelet Volume 9.8 fL (7.0-11.0); Platelet Count 131 th/mm3 (150-450); Red Blood Count 2.88 mil/mm3 (4.50-5.90); Red Cell Distribution Width 16.3 % (11.6-17.2); White Blood Count 10.2 th/mm3 (4.0-11.0)
[2018-07-05 05:41] LABS: Carbon Dioxide 30.9 meq/L (21.0-32.0); Potassium 4.4 meq/L (3.5-5.1)
[2018-07-05] MEDS ORDERED: Succinylcholine Inj 100 MG/5 ML Syringe IV.PUSH ONE (07:00)
[2018-07-05] MEDS ORDERED: Lidocaine PF 1% Inj 5 ML Syringe OTHER ONE (07:00)
[2018-07-05] MEDS: Tiotropium Bromide 18 MCG/ACT Inhaler INH SCH (08:01)
[2018-07-05] MEDS: Senna/Docusate Sodium 8.6/50 MG Tablet PO SCH ×2 (08:01→21:27)
[2018-07-05] MEDS: Sodium Chloride 0.9% 2 ML Flush BID IV.FLUSH SCH ×2 (08:01→21:29)
[2018-07-05] MEDS: guaiFENesin 600 MG ER Tablet PO SCH ×2 (08:01→21:28)
[2018-07-05] MEDS: Budesonide-Formoterol 160/4.5 MCG 6 GM Inhaler INH SCH ×2 (08:01→21:29)
[2018-07-05] MEDS: predniSONE 10 MG Tablet PO SCH (08:01)
--- NOTE | 2018-07-05 08:40 | P.PN ---
Subjective Interval history: Follow-up renal mass status post Sp renal biopsy with subsequent hemorrhage and subselective renal embolization/and now upper GI bleed July 02, 2018-patient seen and examined, had multiple episode of emesis today and complained of abdominal distention. Also complained of left-sided flank pain. Currently afebrile. by the bedside. Case discussed with Dr. Soto, interventional radiologist July 03, 2018-patient seen and examined, last episode of emesis last night and reports some improvement since this a.m. T-max 100.1 at 4 AM however currently afebrile. Still no BM. July 04, 2018-patient seen and examined, still with abdominal distention and pain patient has a tiny BM yesterday described as pellet. Positive for shortness of breath and wheezing on exam July 05, 2018-patient seen and examined, he was transferred to [facility] [place] yesterday secondary to upper GI bleed. When seen this morning, patient reported no more episode. Unable to place NG tube yesterday Physical Exam Vital signs: Vital Signs 07/04/18 11:00 07/04/18 11:59 07/04/18 16:00 Temperature 99.2 F 99.0 F Pulse Rate 113 H 110 H 106 H Respiratory Rate 22 20 20 Blood Pressure 132/74 142/80 H Pulse Oximetry 94 L 92 L 07/04/18 17:20 07/04/18 19:50 07/04/18 20:00 Temperature 99.1 F 100.8 F H Pulse Rate 103 H 97 H Respiratory Rate 24 29 H Blood Pressure 160/80 H 134/69 Pulse Oximetry 97 96 92 L 07/04/18 23:41 07/04/18 23:53 07/05/18 00:00 Temperature 100.3 F H Pulse Rate 94 H 96 H Respiratory Rate 14 19 13 Blood Pressure 114/63 Pulse Oximetry 97 07/05/18 04:00 07/05/18 04:34 07/05/18 07:00 Temperature 98.6 F Pulse Rate 91 H 92 H 92 H Respiratory Rate 20 14 18 Blood Pressure 104/67 Pulse Oximetry 97 07/05/18 07:44 Temperature Pulse Rate Respiratory Rate Blood Pressure Pulse Oximetry 98 Intake & Output 07/04/18 07/05/18 07/05/18 18:59 06:59 18:59 Intake Total 0 / 0 100 / 100 Output Total 450 / 450 1400 / 1400 Balance -450 / -450 -1300 / -1300 Weight 97.6 kg Intake: IV 100 / 100 Protonix Inj 80 MG In NS Inj 100 / 100 100 ML @ 10 mls/hr IV.CONT Q10H [facility] Rx#:[id number] Oral 0 / 0 0 / 0 Output: Urine 450 / 450 1400 / 1400 Other: Date of Last Bowel Movement 07/03/18 # Bowel Movements 0 0 Narrative: GENERAL: NAD SKIN: Warm and dry. HEAD: Normocephalic. EYES: No scleral icterus. No injection or drainage. NECK: Supple, trachea midline. No JVD or lymphadenopathy. CARDIOVASCULAR: Regular rate and rhythm without murmurs, gallops, or rubs. RESPIRATORY: Breath sounds equal bilaterally. No accessory muscle use.+ Bilateral expiratory wheezing GASTROINTESTINAL: Abdomen soft, non-tender, +distended. Positive bowel sounds MUSCULOSKELETAL: No cyanosis, or edema. BACK: tender without obvious deformity. No CVA tenderness. - Urinary Catheter Management Indwelling Urethral Catheter Cath placed during this visit: yes, but has since been removed by the nurse Reason for continuing: Decision to DC catheter Insertion date: 07/01/18 Removal date: 07/03/18 Removal time: 11:00 Results - Labs CBC & Chem 7: 07/05/18 03:58 07/05/18 03:58 Laboratory Results - last 24 hr 07/04/18 07/04/18 07/04/18 16:00 16:00 17:40 WBC 11.8 H RBC 3.14 L Hgb 9.3 L 9.2 L Hct 27.7 L 28.0 L MCV 89.1 MCH 29.5 MCHC 33.1 RDW 16.5 Plt Count 147 L MPV 9.8 Sodium Potassium Chloride Carbon Dioxide Anion Gap BUN Creatinine Estimated GFR Random Glucose Calcium Nasal Screen MRSA (PCR) Not detected Blood Type Blood Type Recheck Antibody Screen 07/04/18 07/04/18 07/05/18 18:25 21:11 03:58 WBC RBC Hgb 8.9 L Hct 27.5 L MCV MCH MCHC RDW Plt Count MPV Sodium 136 Potassium 4.4 Chloride 99 Carbon Dioxide 30.9 Anion Gap 6 BUN 22 H Creatinine 1.44 H Estimated GFR 60 L Random Glucose 124 H Calcium 8.0 L Nasal Screen MRSA (PCR) Blood Type O Positive Blood Type Recheck Not needed Antibody Screen Negative 07/05/18 03:58 WBC 10.2 RBC 2.88 L Hgb 8.6 L Hct 25.9 L MCV 89.8 MCH 29.8 MCHC 33.2 RDW 16.3 Plt Count 131 L MPV 9.8 Sodium Potassium Chloride Carbon Dioxide Anion Gap BUN Creatinine Estimated GFR Random Glucose Calcium Nasal Screen MRSA (PCR) Blood Type Blood Type Recheck Antibody Screen - Imaging Impressions Abdomen/Pelvis CT 07/04/18 00:00 CONCLUSION: 1. Interval development of a large left retroperitoneal hematoma involving perirenal and posterior pararenal spaces, measuring 15 cm in superior/inferior extent. Is also some fluid tracking underneath the left hemidiaphragm and induration extending into the left inguinal canal. 2. Moderate size left pleural effusion and subsegmental consolidation in the left lower lobe. - Procedures Sp renal biopsy with subsequent hemorrhage and subselective renal embolization July 01, 2018 Assessment and Plan - Assessment (1) Left kidney mass Code(s): N28.89 - Other specified disorders of kidney and ureter Status: Acute (2) Status post biopsy of kidney Code(s): Z98.890 - Other specified postprocedural states Status: Acute (3) Upper GI bleeding Code(s): K92.2 - Gastrointestinal hemorrhage, unspecified Status: Acute - Plan 67 years old man with Upper GI bleed Patient seen and evaluated by gastroenterology July 04, 2018 Currently on PPI drip Plan for possible EGD today July 05, 2018 Continue to monitor H&H CT abdomen noted and reviewed by me 1. Left Kidney Mass suspected recommended for Left Kidney Percutaneous Biopsy FNA of the mass S/p renal biopsy with subsequent hemorrhage and subselective renal embolization July 01, 2018 2. COPD/emphysema now with exacerbation; currently on prednisone p.o., azithromycin, Symbicort and Spiriva, and continue scheduled Bronchodilator, Mucolytic and incentive . 3. OA by history 4. Hyperlipidemia -continue Home medicines once reconciled. 5. GERD on gastric protection 6. BPH/Erectile Dysfunction by history 7. Hypertension -continue with hydralazine as needed for blood pressure. 8. Abdominal distention and episodes of emesis- CT abdomen and pelvics July 04, 2018 noted 9. Constipation Continue with stool softener as needed Plan for NG tube placement DVT prophylaxis contraindicated in the light of Hematuria.
--- NOTE | 2018-07-05 09:13 | GIPROC ---
[facility] [address] [facility]. [facility], [address] EGD PROCEDURE REPORT EXAM DATE: 07/05/2018 PATIENT NAME: Loco oNyola MR #: [id number] BIRTHDATE: 1950 ATTENDING: Liban Brice MD ORDER #: [id number] TEST DECK SUPERVISOR: Rosa Tipton and Tila Hancock STATUS: inpatient INDICATIONS: The patient is a 67 yr old male here for an EGD due to hematemesis and acute post hemorrhagic anemia PROCEDURE PERFORMED: EGD w/ biopsy MEDICATIONS: None and Per Anesthesia. TOPICAL ANESTHETIC: CONSENT: The patient understands the risks and benefits of the procedure and understands that these risks include, but are not limited to: sedation, allergic reaction, infection, perforation and/or bleeding. Alternative means of evaluation and treatment include, among others: physical exam, x-rays, and/or surgical intervention. The patient elects to proceed with this endoscopic procedure. medical equipment was checked for proper function. Hand hygiene and appropriate measures for infection prevention was taken. After the risks, benefits and alternatives of the procedure were thoroughly explained, Informed consent was verified, confirmed and timeout was successfully executed by the treatment team. The patient was anesthetized with topical anesthesia and the Pentax EG-[id number] endoscope was introduced through the mouth and advanced to the second portion of the duodenum. Retroflexed views revealed a hiatal hernia The gastroscope was then slowly withdrawn and removed. ESOPHAGUS: There was LA Class C esophagitis noted. A biopsy was performed using cold forceps. Sample sent for histology. STOMACH: There was erythematous moderate gastritis in the gastric antrum. A biopsy was performed using cold forceps. Sample sent for histology. DUODENUM: The duodenal mucosa appeared normal in the bulb and second portion of the duodenum. ADVERSE EVENTS: There were no complications. IMPRESSIONS: 1. There was LA Class C esophagitis noted; biopsy was performed 2. There was erythematous gastritis in the gastric antrum; biopsy was performed 3. Normal duodenal mucosa in the bulb and second portion of the duodenum 4. Retroflexed views revealed a hiatal hernia RECOMMENDATIONS: 1. Await biopsy results. Biopsy results will not be ready for 7-10 days. If you don't hear from us in two weeks, call our office for biopsy results. 2. Anti-reflux regimen 3. Continue PPI PATIENT CONDITION: stable DISPOSITION: Inpatient REPEAT EXAM: Return 3 months EGD pending biopsy results Liban Brice MD eSigned: Liban Brice MD 07/05/2018 9:13 AM cc: PATIENT NAME: Jazmín Loco Ila MR#: [id number]
--- NOTE | 2018-07-05 11:55 | P.PNVS ---
Subjective Subjective/Hospital Course: Patient is status post renal biopsy and bleeding requiring embolization Referral received Full consult to vic Cortez 07/04/2018 As noted in my original consultation patient has retroperitoneal perinephric hematoma which is gradually going to resolve. Repeat CT scan confirms the same and there is no need for any surgical intervention for this is a self-contained issue Hemoglobin remains stable Abdomen is soft with active bowel sounds much improved since the last exam and patient is at this point passing gas. Equally so, CT scan does not show any signs of intestinal obstruction or questionable areas of dilatation and patient has air throughout the colon. Nothing to add from surgery point at this time Biopsy results of the left renal mass do not reveal any malignancy Objective Vital Signs / I&O: Vital Signs 07/04/18 11:59 07/04/18 16:00 07/04/18 17:20 Temperature 99.2 F 99.0 F 99.1 F Pulse Rate 110 H 106 H 103 H Respiratory Rate 20 20 24 Blood Pressure 132/74 142/80 H 160/80 H Pulse Oximetry 94 L 92 L 97 07/04/18 19:50 07/04/18 20:00 07/04/18 23:41 Temperature 100.8 F H Pulse Rate 97 H 94 H Respiratory Rate 29 H 14 Blood Pressure 134/69 Pulse Oximetry 96 92 L 07/04/18 23:53 07/05/18 00:00 07/05/18 04:00 Temperature 100.3 F H 98.6 F Pulse Rate 96 H 91 H Respiratory Rate 19 13 20 Blood Pressure 114/63 104/67 Pulse Oximetry 97 97 07/05/18 04:34 07/05/18 07:00 07/05/18 07:44 Temperature Pulse Rate 92 H 92 H Respiratory Rate 14 18 Blood Pressure Pulse Oximetry 98 07/05/18 08:00 07/05/18 09:19 07/05/18 09:30 Temperature 98.3 F 99.3 F Pulse Rate 96 H 100 H 95 H Respiratory Rate 23 20 14 Blood Pressure 121/75 100/62 115/55 L Pulse Oximetry 95 98 94 L 07/05/18 09:45 07/05/18 11:50 Temperature Pulse Rate 92 H 76 Respiratory Rate 14 14 Blood Pressure 107/61 Pulse Oximetry 96 Intake & Output 07/04/18 07/05/18 07/05/18 18:59 06:59 18:59 Intake Total 0 / 0 100 / 100 115 / 115 Output Total 450 / 450 1400 / 1400 250 / 250 Balance -450 / -450 -1300 / -1300 -135 / -135 Weight 97.6 kg Intake: IV 100 / 100 Protonix Inj 80 MG In NS Inj 100 / 100 100 ML @ 10 mls/hr IV.CONT Q10H [facility] Rx#:[id number] Oral 0 / 0 0 / 0 15 / 15 Anesthesia Amount 100 / 100 Output: Urine 450 / 450 1400 / 1400 250 / 250 Other: # Voids 2 Date of Last Bowel Movement 07/03/18 # Bowel Movements 0 0 0 Laboratory Results - last 24 hr 07/04/18 07/04/18 07/04/18 16:00 16:00 17:40 WBC 11.8 H RBC 3.14 L Hgb 9.3 L 9.2 L Hct 27.7 L 28.0 L MCV 89.1 MCH 29.5 MCHC 33.1 RDW 16.5 Plt Count 147 L MPV 9.8 Sodium Potassium Chloride Carbon Dioxide Anion Gap BUN Creatinine Estimated GFR Random Glucose Calcium Nasal Screen MRSA (PCR) Not detected Blood Type Blood Type Recheck Antibody Screen 07/04/18 07/04/18 07/05/18 18:25 21:11 03:58 WBC RBC Hgb 8.9 L Hct 27.5 L MCV MCH MCHC RDW Plt Count MPV Sodium 136 Potassium 4.4 Chloride 99 Carbon Dioxide 30.9 Anion Gap 6 BUN 22 H Creatinine 1.44 H Estimated GFR 60 L Random Glucose 124 H Calcium 8.0 L Nasal Screen MRSA (PCR) Blood Type O Positive Blood Type Recheck Not needed Antibody Screen Negative 07/05/18 03:58 WBC 10.2 RBC 2.88 L Hgb 8.6 L Hct 25.9 L MCV 89.8 MCH 29.8 MCHC 33.2 RDW 16.3 Plt Count 131 L MPV 9.8 Sodium Potassium Chloride Carbon Dioxide Anion Gap BUN Creatinine Estimated GFR Random Glucose Calcium Nasal Screen MRSA (PCR) Blood Type Blood Type Recheck Antibody Screen Impressions Abdomen/Pelvis CT 07/04/18 00:00 CONCLUSION: 1. Interval development of a large left retroperitoneal hematoma involving perirenal and posterior pararenal spaces, measuring 15 cm in superior/inferior extent. Is also some fluid tracking underneath the left hemidiaphragm and induration extending into the left inguinal canal. 2. Moderate size left pleural effusion and subsegmental consolidation in the left lower lobe.
[2018-07-05] MEDS: Azithromycin 250 MG Tablet PO SCH (14:05)
[2018-07-06] MEDS: Pantoprazole Inj 80 MG in Sodium Chlor 0.9% Inj 100 ML IV.CONT SCH ×2 (00:14→09:44)
[2018-07-06 06:19] LABS: Baso % (Auto) 0.4 % (0.0-2.0); Eos % (Auto) 0.4 % (0.0-4.0); Hematocrit 23.8 % (39.0-51.0); Hemoglobin 7.9 gm/dL (13.0-17.0); Lymph # (Auto) 1.7 th/mm3 (1.0-4.8); Lymph % (Auto) 21.3 % (9.0-44.0); Mean Corpuscular HGB Conc 33.4 % (32.0-36.0); Mean Corpuscular Hemoglobin 29.9 pg (27.0-34.0); Mean Corpuscular Volume 89.4 fL (80.0-100.0); Mono # (Auto) 0.7 th/mm3 (0.0-0.9); Mono % (Auto) 8.5 % (0.0-8.0); Neut # (Auto) 5.7 th/mm3 (1.8-7.7); Neut % (Auto) 69.4 % (16.0-70.0); Platelet Count 153 th/mm3 (150-450); Red Blood Count 2.66 mil/mm3 (4.50-5.90); Red Cell Distribution Width 16.3 % (11.6-17.2); White Blood Count 8.2 th/mm3 (4.0-11.0)
[2018-07-06 06:41] LABS: Albumin 2.2 g/dL (3.4-5.0); Anion Gap 8 meq/L (5-15); Aspartate Aminotransferase 53 U/L (15-37); Blood Urea Nitrogen 22 mg/dL (7-18); Calcium 8.3 mg/dL (8.5-10.1); Carbon Dioxide 28.6 meq/L (21.0-32.0); Chloride 100 meq/L (98-107); Glomerular Filtration Rate 74 mL/min (>89); Glucose,Random 193 mg/dL (74-106); Potassium 3.7 meq/L (3.5-5.1); Sodium 137 meq/L (136-145)
[2018-07-06 06:42] LABS: Alanine Aminotransferase 42 U/L (12-78)
[2018-07-06 06:44] LABS: Alkaline Phosphatase 153 U/L (45-117); Total Protein 6.4 g/dL (6.4-8.2)
[2018-07-06] MEDS: Sodium Chloride 0.9% 2 ML Flush BID IV.FLUSH SCH ×2 (08:49→20:37)
[2018-07-06] MEDS: Senna/Docusate Sodium 8.6/50 MG Tablet PO SCH ×2 (08:49→20:27)
[2018-07-06] MEDS: predniSONE 10 MG Tablet PO SCH (08:49)
[2018-07-06] MEDS: Tiotropium Bromide 18 MCG/ACT Inhaler INH SCH (08:49)
[2018-07-06] MEDS: guaiFENesin 600 MG ER Tablet PO SCH ×2 (08:49→20:27)
[2018-07-06] MEDS: Budesonide-Formoterol 160/4.5 MCG 6 GM Inhaler INH SCH ×2 (08:50→20:29)
--- NOTE | 2018-07-06 09:48 | P.PNVS ---
Subjective Subjective/Hospital Course: Patient is status post renal biopsy and bleeding requiring embolization Referral received Full consult to vic Cortez 07/04/2018 As noted in my original consultation patient has retroperitoneal perinephric hematoma which is gradually going to resolve. Repeat CT scan confirms the same and there is no need for any surgical intervention for this is a self-contained issue Hemoglobin remains stable Abdomen is soft with active bowel sounds much improved since the last exam and patient is at this point passing gas. Equally so, CT scan does not show any signs of intestinal obstruction or questionable areas of dilatation and patient has air throughout the colon. Nothing to add from surgery point at this time Biopsy results of the left renal mass do not reveal any malignancy 07/06/2018 Abdomen soft active bowel sounds nontender to palpation no rebound or guarding and patient passing lots of gas Retroperitoneal hematoma is what it is and will gradually resolve and no particular procedures necessary for the same GI EGD biopsy consistent with gastritis From my point patient can be discharged any time and nothing to add from surgical aspect Objective Vital Signs / I&O: Vital Signs 07/05/18 11:50 07/05/18 12:00 07/05/18 15:45 Temperature 98.1 F Pulse Rate 76 94 H 94 H Respiratory Rate 14 18 18 Blood Pressure 110/61 Pulse Oximetry 93 L 07/05/18 15:46 07/05/18 16:00 07/05/18 19:39 Temperature 98.2 F Pulse Rate 99 H 99 H Respiratory Rate 17 20 Blood Pressure 139/80 Pulse Oximetry 93 L 95 07/05/18 19:58 07/06/18 00:00 07/06/18 04:06 Temperature 98.8 F 99.0 F 98.8 F Pulse Rate 103 H 87 80 Respiratory Rate 22 21 18 Blood Pressure 150/80 H 126/76 135/60 Pulse Oximetry 95 97 97 07/06/18 08:00 Temperature 98.5 F Pulse Rate 78 Respiratory Rate 18 Blood Pressure 132/59 L Pulse Oximetry 98 Intake & Output 07/05/18 07/06/18 07/06/18 18:59 06:59 18:59 Intake Total 1190 / 1190 580 / 580 100 / 100 Output Total 900 / 900 1300 / 1300 500 / 500 Balance 290 / 290 -720 / -720 -400 / -400 Weight 96 kg Intake: IV 100 / 100 100 / 100 100 / 100 Protonix Inj 80 MG In NS Inj 100 / 100 100 / 100 100 / 100 100 ML @ 10 mls/hr IV.CONT Q10H [facility] Rx#:[id number] Oral 990 / 990 480 / 480 Anesthesia Amount 100 / 100 Output: Urine 900 / 900 1300 / 1300 500 / 500 Other: # Voids 2 2 Date of Last Bowel Movement 07/03/18 07/04/18 # Bowel Movements 0 Laboratory Results - last 24 hr 07/06/18 07/06/18 04:50 04:50 WBC 8.2 RBC 2.66 L Hgb 7.9 L Hct 23.8 L MCV 89.4 MCH 29.9 MCHC 33.4 RDW 16.3 Plt Count 153 MPV 10.0 Neut % (Auto) 69.4 Lymph % (Auto) 21.3 [place] % (Auto) 8.5 H Eos % (Auto) 0.4 Baso % (Auto) 0.4 Neut # (Auto) 5.7 Lymph # (Auto) 1.7 [place] # (Auto) 0.7 Eos # (Auto) 0.0 Baso # (Auto) 0.0 WBC Differential . Differential Comment Auto diff final Sodium 137 Potassium 3.7 Chloride 100 Carbon Dioxide 28.6 Anion Gap 8 BUN 22 H Creatinine 1.20 Estimated GFR 74 L Random Glucose 193 H Calcium 8.3 L Total Bilirubin 0.8 AST 53 H ALT 42 Alkaline Phosphatase 153 H Total Protein 6.4 Albumin 2.2 L Impressions Abdomen/Pelvis CT 07/04/18 00:00 CONCLUSION: 1. Interval development of a large left retroperitoneal hematoma involving perirenal and posterior pararenal spaces, measuring 15 cm in superior/inferior extent. Is also some fluid tracking underneath the left hemidiaphragm and induration extending into the left inguinal canal. 2. Moderate size left pleural effusion and subsegmental consolidation in the left lower lobe.
--- NOTE | 2018-07-06 11:10 | P.PNIM ---
Subjective Interval history: Patient complains of mild left-sided flank pain. No hematemesis. Denies bloody bowel movements. Otherwise he does not have any complaints this morning. Physical Exam Vital signs: Vital Signs 07/05/18 11:50 07/05/18 12:00 07/05/18 15:45 Temperature 98.1 F Pulse Rate 76 94 H 94 H Respiratory Rate 14 18 18 Blood Pressure 110/61 Pulse Oximetry 93 L 07/05/18 15:46 07/05/18 16:00 07/05/18 19:39 Temperature 98.2 F Pulse Rate 99 H 99 H Respiratory Rate 17 20 Blood Pressure 139/80 Pulse Oximetry 93 L 95 07/05/18 19:58 07/06/18 00:00 07/06/18 04:06 Temperature 98.8 F 99.0 F 98.8 F Pulse Rate 103 H 87 80 Respiratory Rate 22 21 18 Blood Pressure 150/80 H 126/76 135/60 Pulse Oximetry 95 97 97 07/06/18 08:00 Temperature 98.5 F Pulse Rate 78 Respiratory Rate 18 Blood Pressure 132/59 L Pulse Oximetry 98 Intake & Output 07/05/18 07/06/18 07/06/18 18:59 06:59 18:59 Intake Total 1190 / 1190 580 / 580 100 / 100 Output Total 900 / 900 1300 / 1300 500 / 500 Balance 290 / 290 -720 / -720 -400 / -400 Weight 96 kg Intake: IV 100 / 100 100 / 100 100 / 100 Protonix Inj 80 MG In NS Inj 100 / 100 100 / 100 100 / 100 100 ML @ 10 mls/hr IV.CONT Q10H [facility] Rx#:[id number] Oral 990 / 990 480 / 480 Anesthesia Amount 100 / 100 Output: Urine 900 / 900 1300 / 1300 500 / 500 Other: # Voids 2 2 Date of Last Bowel Movement 07/03/18 07/04/18 # Bowel Movements 0 Narrative: General patient in no acute distress HEENT extraocular movements are intact, clear oropharyngeal mucosa, no JVD Cardiovascular S1-S2 audible, RRR, no murmurs rubs or gallops Respiratory clear to auscultation bilaterally Abdomen soft, mild left-sided flank pain. Extremities 2+ distal pulses in bilateral upper and lower extremities Neuro patient moves all 4 extremities. Sensation is intact bilaterally - Urinary Catheter Management Indwelling Urethral Catheter Cath placed during this visit: yes, but has since been removed by the nurse Reason for continuing: Decision to DC catheter Insertion date: 07/01/18 Removal date: 07/03/18 Removal time: 11:00 Results - Labs CBC & Chem 7: 07/06/18 04:50 07/06/18 04:50 Laboratory Results - last 24 hr 07/06/18 07/06/18 04:50 04:50 WBC 8.2 RBC 2.66 L Hgb 7.9 L Hct 23.8 L MCV 89.4 MCH 29.9 MCHC 33.4 RDW 16.3 Plt Count 153 MPV 10.0 Neut % (Auto) 69.4 Lymph % (Auto) 21.3 [place] % (Auto) 8.5 H Eos % (Auto) 0.4 Baso % (Auto) 0.4 Neut # (Auto) 5.7 Lymph # (Auto) 1.7 [place] # (Auto) 0.7 Eos # (Auto) 0.0 Baso # (Auto) 0.0 WBC Differential . Differential Comment Auto diff final Sodium 137 Potassium 3.7 Chloride 100 Carbon Dioxide 28.6 Anion Gap 8 BUN 22 H Creatinine 1.20 Estimated GFR 74 L Random Glucose 193 H Calcium 8.3 L Total Bilirubin 0.8 AST 53 H ALT 42 Alkaline Phosphatase 153 H Total Protein 6.4 Albumin 2.2 L - Procedures Sp renal biopsy with subsequent hemorrhage and subselective renal embolization July 01, 2018 Assessment and Plan - Assessment (1) Left kidney mass Code(s): N28.89 - Status: Acute (2) Status post biopsy of kidney Code(s): Z98.890 - Status: Acute (3) Upper GI bleeding Code(s): K92.2 - Status: Acute - Plan 67 years old man who was found to have a left renal mass approximately 6 months ago. The patient was admitted and scheduled for renal biopsy of the mass. He subsequently underwent CT-guided biopsy of the mass and then had hemorrhage from the kidney. He then underwent embolization. During the hospitalization the patient also began to have an upper GI bleed which required an upper endoscopy. 1. Upper GI bleed No reports of hematemesis or bloody bowel movements. Patient seen and evaluated by gastroenterology July 04, 2018. Protonix switched to IV twice daily. Gastroenterology following and recommends Protonix. We will follow-up biopsy results from the EGD. Continue to monitor H&H 2. Left Kidney Mass suspected recommended for Left Kidney CT-guided biopsy of the mass S/p renal biopsy with subsequent hemorrhage and subselective renal embolization July 01, 2018. Biopsy of the mass does not show any findings consistent with malignancy. Hemoglobin is slightly decreased from yesterday. We will follow-up in a.m. hemogram. Vascular surgery believes the patient's hemorrhage is resolving. Continue to monitor H&H 3. JOSE likely 2/2 hemorrhage His acute kidney injury was likely secondary to hemorrhage. Serum creatinine has now normalized. 4. COPD/emphysema Keep O2 saturation above 92%. Continue breathing treatments. On p.o. steroids. 5. Hyperlipidemia Continue current medications 6. Hypertension Continue current medications. The patient blood pressure medication will be adjusted as needed. DVT prophylaxis contraindicated in the light of hemorrhage
[2018-07-06] MEDS: Azithromycin 250 MG Tablet PO SCH (14:00)
[2018-07-06] MEDS: Pantoprazole Inj 40 MG Vial IV.PUSH SCH ×2 (14:00→20:28)
--- NOTE | 2018-07-06 14:41 | P.PNGI ---
Subjective Interval history: Patient sitting up at bedside conversing with spouse. Pt denies nausea or vomiting. Denies abdominal pain. Patient reports he is tolerating liquid diet without complaints. No hematemesis per patient. No noted obvious bleeding. No bm today as yet. <Basilia Hines - Last Filed: 07/06/18 14:24> Physical Exam Vital signs: Vital Signs 07/05/18 15:45 07/05/18 15:46 07/05/18 16:00 Temperature 98.2 F Pulse Rate 94 H 99 H Respiratory Rate 18 17 Blood Pressure 139/80 Pulse Oximetry 93 L 95 07/05/18 19:39 07/05/18 19:58 07/06/18 00:00 Temperature 98.8 F 99.0 F Pulse Rate 99 H 103 H 87 Respiratory Rate 20 22 21 Blood Pressure 150/80 H 126/76 Pulse Oximetry 95 97 07/06/18 04:06 07/06/18 08:00 07/06/18 12:00 Temperature 98.8 F 98.5 F 98.0 F Pulse Rate 80 78 81 Respiratory Rate 18 18 16 Blood Pressure 135/60 132/59 L 152/77 H Pulse Oximetry 97 98 96 Intake & Output 07/05/18 07/06/18 07/06/18 18:59 06:59 18:59 Intake Total 1190 / 1190 580 / 580 200 / 200 Output Total 900 / 900 1300 / 1300 500 / 500 Balance 290 / 290 -720 / -720 -300 / -300 Weight 96 kg Intake: IV 100 / 100 100 / 100 200 / 200 Protonix Inj 80 MG In NS Inj 100 / 100 100 / 100 200 / 200 100 ML @ 10 mls/hr IV.CONT Q10H [facility] Rx#:[id number] Oral 990 / 990 480 / 480 Anesthesia Amount 100 / 100 Output: Urine 900 / 900 1300 / 1300 500 / 500 Other: # Voids 2 2 Date of Last Bowel Movement 07/03/18 07/04/18 # Bowel Movements 0 - Constitutional no acute distress - Routine HEENT Exam Head: Present: normocephalic - Routine Neck Exam Present: supple - Routine Respiratory Exam Present: CTA bilaterally. Absent: accessory muscle use, respiratory distress - Routine Cardiovascular Exam Present: RRR - Routine Abdominal Exam Present: soft, normoactive bowel sounds, distended. Absent: tenderness, guarding, firm - Routine Extremities Exam Present: full ROM, pulses intact. Absent: clubbing, edema - Routine Skin Exam Present: dry, warm - Routine Neurological Exam Present: alert, oriented X3 - Detailed Neurological Exam: Coma Scale Eye Opening: Spontaneous Verbal Response: Oriented Motor Response: Obey commands [place] Coma Scale Total: 15 - Routine Psychiatric Exam Present: normal affect, cooperative - Urinary Catheter Management Indwelling Urethral Catheter Cath placed during this visit: yes, but has since been removed by the nurse Reason for continuing: Decision to DC catheter Insertion date: 07/01/18 Removal date: 07/03/18 Removal time: 11:00 <Basilia Hines - Last Filed: 07/06/18 14:24> Vital signs: Vital Signs 07/06/18 00:00 07/06/18 04:06 07/06/18 08:00 Temperature 99.0 F 98.8 F 98.5 F Pulse Rate 87 80 78 Respiratory Rate 21 18 18 Blood Pressure 126/76 135/60 132/59 L Pulse Oximetry 97 97 98 07/06/18 12:00 07/06/18 16:00 07/06/18 19:59 Temperature 98.0 F 98.5 F 99.5 F Pulse Rate 81 83 88 Respiratory Rate 16 18 18 Blood Pressure 152/77 H 141/73 H 133/71 Pulse Oximetry 96 92 L 94 L Intake & Output 07/06/18 07/06/18 07/07/18 06:59 18:59 06:59 Intake Total 580 / 580 2600 / 2600 Output Total 1300 / 1300 500 / 500 Balance -720 / -720 2100 / 2100 Weight 96 kg Intake: IV 100 / 100 200 / 200 Protonix Inj 80 MG In NS Inj 100 / 100 200 / 200 100 ML @ 10 mls/hr IV.CONT Q10H [facility] Rx#:[id number] Oral 480 / 480 2400 / 2400 Output: Urine 1300 / 1300 500 / 500 Other: # Voids 2 5 Date of Last Bowel Movement 07/04/18 - Urinary Catheter Management Indwelling Urethral Catheter Cath placed during this visit: no <Dominick Arrington - Last Filed: 07/06/18 22:11> Results - Labs CBC & Chem 7: 07/06/18 04:50 07/06/18 04:50 Laboratory Results - last 24 hr 07/06/18 07/06/18 04:50 04:50 WBC 8.2 RBC 2.66 L Hgb 7.9 L Hct 23.8 L MCV 89.4 MCH 29.9 MCHC 33.4 RDW 16.3 Plt Count 153 MPV 10.0 Neut % (Auto) 69.4 Lymph % (Auto) 21.3 [place] % (Auto) 8.5 H Eos % (Auto) 0.4 Baso % (Auto) 0.4 Neut # (Auto) 5.7 Lymph # (Auto) 1.7 [place] # (Auto) 0.7 Eos # (Auto) 0.0 Baso # (Auto) 0.0 WBC Differential . Differential Comment Auto diff final Sodium 137 Potassium 3.7 Chloride 100 Carbon Dioxide 28.6 Anion Gap 8 BUN 22 H Creatinine 1.20 Estimated GFR 74 L Random Glucose 193 H Calcium 8.3 L Total Bilirubin 0.8 AST 53 H ALT 42 Alkaline Phosphatase 153 H Total Protein 6.4 Albumin 2.2 L - Procedures Sp renal biopsy with subsequent hemorrhage and subselective renal embolization July 01, 2018 <Basilia Hines - Last Filed: 07/06/18 14:24> - Labs CBC & Chem 7: 07/06/18 04:50 07/06/18 04:50 Laboratory Results - last 24 hr 07/06/18 07/06/18 04:50 04:50 WBC 8.2 RBC 2.66 L Hgb 7.9 L Hct 23.8 L MCV 89.4 MCH 29.9 MCHC 33.4 RDW 16.3 Plt Count 153 MPV 10.0 Neut % (Auto) 69.4 Lymph % (Auto) 21.3 [place] % (Auto) 8.5 H Eos % (Auto) 0.4 Baso % (Auto) 0.4 Neut # (Auto) 5.7 Lymph # (Auto) 1.7 [place] # (Auto) 0.7 Eos # (Auto) 0.0 Baso # (Auto) 0.0 WBC Differential . Differential Comment Auto diff final Sodium 137 Potassium 3.7 Chloride 100 Carbon Dioxide 28.6 Anion Gap 8 BUN 22 H Creatinine 1.20 Estimated GFR 74 L Random Glucose 193 H Calcium 8.3 L Total Bilirubin 0.8 AST 53 H ALT 42 Alkaline Phosphatase 153 H Total Protein 6.4 Albumin 2.2 L <Dominick Arrington - Last Filed: 07/06/18 22:11> Assessment and Plan (1) Upper GI bleeding Status: Acute Code(s): K92.2 - Gastrointestinal hemorrhage, unspecified - Plan 07/06/18- Patient sitting up in bed. Denies nausea or vomiting. States tolerating liquid diet. No obvious bleeding noted. No reports of hematemesis or rectal bleeding. 07/06/18 Labs- Hgb 7.9,Hct 23.8 Plts 153 total bili 0.8 AST 53 ALT 42 Alk Phos 153. EGD results discussed with patient and spouse--> EGD by Dr. Brice - IMPRESSIONS:There was LA Class C esophagitis noted; biopsy was performed. There was erythematous gastritis in the gastric antrum; biopsy was performed Normal duodenal mucosa in the bulb and second portion of the duodenum Retroflexed views revealed a hiatal hernia. Patient advised to follow up regarding EGD bx after discharge home. Plan: -Diet as tolerated -Continue PPI -Anti-reflux precautions- discussed -Avoid NSAIDS -Continue to monitor for GI bleeding -Follow CBC -Transfuse as needed -Biopsies pending -Supportive care -Further recommendations to follow This patient has been seen by myself and Dr. Arrington and this note is written on his behalf. - Attending Attestation Dr. Arrington <Basilia Hines - Last Filed: 07/06/18 14:24> (1) Upper GI bleeding Status: Acute Code(s): K92.2 - Gastrointestinal hemorrhage, unspecified - Plan Patient seen and examined Agree with above Continue with current supportive care Monitor labs Patient in bed eating dinner denies any bowel movements denies any active bleeding Patient claims last colonoscopy was several years ago If the trend in his hemoglobin continues to be in a decline we will need to pursue a colonoscopy prior to discharge <Dominick Arrington - Last Filed: 07/06/18 22:11>
[2018-07-07 06:12] VITALS: PULSE 83; RESP 18
[2018-07-07 07:04] LABS: Hematocrit 23.6 % (39.0-51.0)
[2018-07-07 08:10] VITALS: BP 140/63; TEMP 97.9
[2018-07-07] MEDS: guaiFENesin 600 MG ER Tablet PO SCH (08:35)
[2018-07-07] MEDS: Senna/Docusate Sodium 8.6/50 MG Tablet PO SCH (08:35)
[2018-07-07] MEDS: predniSONE 10 MG Tablet PO SCH (08:35)
[2018-07-07] MEDS: Pantoprazole Inj 40 MG Vial IV.PUSH SCH (08:36)
[2018-07-07] MEDS: Sodium Chloride 0.9% 2 ML Flush BID IV.FLUSH SCH (08:36)
[2018-07-07] MEDS: Budesonide-Formoterol 160/4.5 MCG 6 GM Inhaler INH SCH (08:37)
[2018-07-07] MEDS: Tiotropium Bromide 18 MCG/ACT Inhaler INH SCH (08:37)
--- NOTE | 2018-07-07 10:19 | P.DS ---
Date of admission: 07/02/18 15:08 Primary care physician: Dr. Claudio Pizarro Brief History from admission: 67 years old man with documented dyslipidemia, and GERD who was found to have a left renal mass approximately 6 months ago on imaging. The patient was admitted and scheduled for renal biopsy of the mass. DS: Diagnosis - Discharge Diagnosis (1) Left kidney mass Status: Acute (2) Status post biopsy of kidney Status: Acute (3) Upper GI bleeding Status: Acute DS: Medications - Discharge Medications Prescriptions: oxycodone-acetaminophen 1 tab PO Q8H PRN 2 Days #6 tab PRN Reason: Pain Scale 6 To 10 pantoprazole 40 mg PO BID #30 tab DS: Summary Hospital Course: 1. Acute upper GI bleed 2. Left kidney mass status post biopsy and hemorrhage from the mass. 3. Acute kidney injury likely secondary to hemorrhage 4. COPD 5. History of tobacco use. 67 years old man with documented dyslipidemia, and GERD who was found to have a left renal mass approximately 6 months ago on imaging. The patient was admitted and scheduled for renal biopsy of the mass. There was a concern that the patient's mass could possibly be the renal cell carcinoma. He subsequently underwent CT-guided biopsy of the mass and then had hemorrhage from the kidney. Vascular surgery was consulted to evaluate the patient. He then underwent embolization in order to control the hemorrhage. The hemorrhage was subsequently controlled. We continued to monitor the patient's hemoglobin closely and has now been stabilized. There has not been a significant drop in his hemoglobin over the past 2 days. The patient has a scheduled appointment with his primary care physician Dr. Heather Pizarro for this Friday. He should have his hemoglobin checked to make sure there is no continued bleeding. His hemoglobin as of today 07/07/2018 is 8.0.the patient was advised to seek immediate medical attention if he begins to have a significant drop in blood pressure or if he has significant symptoms of fatigue or dizziness. He will be given Percocet over the next few days for pain control. During the hospitalization the patient also began to have an upper GI bleed which required an upper endoscopy. He was placed on IV Protonix and GI was consulted. Endoscopy was done which showed erythematous gastritis in the gastric antrum biopsies were performed and are currently pending and should be followed up. There is no active bleeding seen. The patient will be continued on Protonix p.o. twice daily for 2 weeks then he can continue Protonix daily. He also had acute kidney injury during the hospitalization which improved with IV fluids. His creatinine has now normalized. The patient has an extensive history of tobacco smoking. The patient was counseled extensively on tobacco use. He states that he has not smoked tobacco for over the past 5 years. He should be evaluated by his primary care doctor and have outpatient pulmonary function tests done. The patient states that he has an albuterol inhaler as well as Symbicort which should be continued. He is currently on room air without any complaints of shortness of breath. He will be discharged home today. 6. Questionable rheumatoid arthritis As per the patient he has a diagnosis of rheumatoid arthritis which was diagnosed many years ago. He states that he takes prednisone daily for rheumatoid arthritis. After following up with his primary care physician I recommend that he follows up with a apartment maintenance worker if he indeed does have rheumatoid arthritis to see if there are any other options for treatment. 7. Dyslipidemia The patient was counseled on diet and exercise. He states that he takes a statin at home. This medication can be continued. - Time Spent with Patient Total time spent providing and/or coordinating discharge services: Greater than 30 minutes - Quality: VTE Deep Vein Thrombosis/Pulmonary Embolism Present on Admission: No Exam Vital signs: Vital Signs 07/06/18 12:00 07/06/18 16:00 07/06/18 19:59 Temperature 98.0 F 98.5 F 99.5 F Pulse Rate 81 83 88 Respiratory Rate 16 18 18 Blood Pressure 152/77 H 141/73 H 133/71 Pulse Oximetry 96 92 L 94 L 07/06/18 23:17 07/07/18 04:00 07/07/18 08:00 Temperature 98.7 F 98.4 F 97.9 F Pulse Rate 91 H 83 83 Respiratory Rate 17 18 18 Blood Pressure 130/71 151/70 H 140/63 Pulse Oximetry 93 L 92 L 98 Intake & Output 07/06/18 07/07/18 07/07/18 18:59 06:59 18:59 Intake Total 2600 / 2600 Output Total 500 / 500 700 / 700 Balance 2100 / 2100 -700 / -700 Weight 96 kg Intake: IV 200 / 200 Protonix Inj 80 MG In NS Inj 200 / 200 100 ML @ 10 mls/hr IV.CONT Q10H [facility] Rx#:[id number] Oral 2400 / 2400 Output: Urine 500 / 500 700 / 700 Other: # Voids 5 2 Date of Last Bowel Movement 07/04/18 Narrative: General patient in no acute distress HEENT extraocular movements are intact, clear oropharyngeal mucosa, no JVD Cardiovascular S1-S2 audible, RRR, no murmurs rubs or gallops Respiratory clear to auscultation bilaterally Abdomen soft, nontender, nondistended, normal bowel sounds, mild left-sided flank pain. Extremities no edema 2+ distal pulses in bilateral upper and lower extremities Neuro cranial nerves II through XII intact Results Procedures completed during hospitalization: Sp renal biopsy with subsequent hemorrhage and subselective renal embolization July 01, 2018 EGD for upper GI bleed. Pending studies at discharge: Pending at discharge 07/05/18 07:27 Surgical [PTH] Routine Labs on day of discharge: Labs from last 24 hours 07/07/18 06:05 Hgb 8.0 L Hct 23.6 L - Impressions ITS Impressions Renal Arteriogram 07/01/18 00:00 CONCLUSION: 1. Suspect a venous bleed from the lower pole vasculature in the left kidney. 2. Gelfoam and coil embolization of the arterial feeder to the left lower pole. Renal Biopsy CT 07/01/18 00:00 CONCLUSION: 1. Successful CT-guided biopsy of the lower pole the left kidney. 2. The patient was transferred back to the radiology outpatient unit in satisfactory condition. The patient will be monitored for approximately 6 hours. Abdomen X-Ray 07/02/18 00:00 CONCLUSION: No acute findings. Abdomen/Pelvis CT 07/04/18 00:00 CONCLUSION: 1. Interval development of a large left retroperitoneal hematoma involving perirenal and posterior pararenal spaces, measuring 15 cm in superior/inferior extent. Is also some fluid tracking underneath the left hemidiaphragm and induration extending into the left inguinal canal. 2. Moderate size left pleural effusion and subsegmental consolidation in the left lower lobe. Discharge Plan - Discharge Disposition Patient Disposition: 01 Discharge Home - Discharge Condition Condition: Good - Discharge Order Discharge Orders: Discharge Order (Routine); Ordered 07/07/18 Ordered By: [place] Fang - Physicians Team Primary Care Provider: UNKNOWN, Attending Provider: [place] Fang Other Providers: Antonio Delong MD ; Andres Saleh MD ; [employer] ; Luther Balderas MD ; Naima Weeks ARNP ; Regina Milan MD ; Oscar Sun ARNP ; Suzette Navarro MD ; [facility], [facility] ; Liban Brice MD - Rxs /Orders / Referrals /Forms Prescriptions: New oxycodone-acetaminophen 5-325 mg Tablet 1 tab PO Q8H PRN (Reason: Pain Scale 6 To 10) 2 Days Qty: 6 RF: 0 pantoprazole 40 mg Tablet,Delayed Release (Dr/Ec) 40 mg PO BID Qty: 30 RF: 0 Continue benzonatate [Tessalon Perles] 100 mg capsule 100 mg PO TID PRN (Reason: cough) Qty: 30 RF: 0 pseudoephedrine HCl [Sudafed 24 Hour] 240 mg tablet extended release 24 hr 240 mg PO DAILY PRN (Reason: nasal congestion) Qty: 10 RF: 0 Discontinued amoxicillin 875 mg tablet 875 mg PO Q12H Qty: 20 RF: 0 amoxicillin-pot clavulanate [Augmentin] 875-125 mg tablet 1 tab PO Q12H Qty: 20 RF: 0 Referrals: UNKNOWN, [Primary Care Provider] - 07/10/18 12:50 pm (Appointment Scheduled July 10 at 12:50pm Dr. Claudio Pizarro Family medicine [address] [place] [address] [phone]) - Discharge Instructions Patient Printed Instructions: Oxycodone/Acetaminophen (By mouth), Pantoprazole (By mouth), Percutaneous Kidney Biopsy (DC)
[2018-07-07 12:38] VITALS: O2SAT 95
== END 2018-07-07 11:40 | disposition home or self-care (01) ==
LOC: HRAD 08:17 → N05 08:17 → HRIP 08:26 → N05 17:31 → OBSVTOIN 07-02 14:55 → N05 07-02 15:08 → HIMC 07-04 17:00 → N07 07-05 10:02
PROVIDERS: ADMIT Hospitalist; ATTEND Hospitalist